=== PATIENT | male | born 1980 | race Caucasian/White ===

== ENCOUNTER 2024-12-06 13:41 | Emergency (ER) | payer MEDICAID, SELFPAY ==
[2024-12-06 13:42] VITALS: BP 97/83; PULSE 90; RESP 18; TEMP 36.6; O2SAT 97; BMI 24.7
--- NOTE | 2024-12-06 13:59 | EDS_ITS ---
<Statement entered by Alo Patiño DO - 12/06/24 16:10> Patient was seen and examined with nurse suze Kelly All components of the history and physical confirmed and agreed. History of present illness and physical exam: Patient is a 44-year-old male with known significant past medical history who presents to the emergency department the chief complaint of cough, congestion, diffuse bodyaches and feeling overall fatigued. Patient states that several of his household members have been sick with similar symptoms and notes that he brought his younger son here today to be evaluated as well. Patient states that his chest does hurt when he coughs minimally. Patient denies any recent travel history denies any history of blood clots. Review of systems: Agree with above Physical exam: Agree with above MDM Patient is a 44-year-old male with no known significant past medical history who presents to the Emergency Department chief complaint of cough, congestion, not feeling well overall. On the differential diagnose includes but not limited to upper respiratory infection secondary viral etiology, pneumonia, ACS. Once workup is obtained reviewed he will be reevaluated. Patient's chest x-ray reviewed by myself and by radiology showed no acute cardiopulmonary processes. Patient did test positive for influenza A. Patient was encouraged to rotate Tylenol and ibuprofen [id number] as well as use the Zofran as prescribed for nausea. He was encouraged to ensure adequate hydration and return with worsening symptoms or any concerns otherwise he is to follow-up with his primary care physician outpatient setting. He is agreeable this plan all question concerns answered he is discharged home in stable condition. Final impression: Influenza A Disposition: Patient will be discharged home in stable condition Supervising attending attestation: Alo Patiño D.O. [facility] History of Present Illness Chief Complaint: Cold Sx Narrative Narrative: Patient is a 44-year-old male with no significant ankle history, patient presents to the emergency department with complaints of cough, congestion, body aches, feeling fatigued. Patient states that he has similar symptoms but his entire family has. He is here today with his younger son. Patient denies any nausea or vomiting. Patient states when he coughs his chest hurts. PFSH PFSH Allergy/AdvReac Type Severity Reaction Status Date / Time No Known Allergies Allergy Verified 12/06/24 13:42 Social History Smoking Status: Never smoker ROS ROS ED ROS Narrative Constitutional: Negative for fever, weight loss, weakness. Positive for chills, fatigue Eyes: Negative for vision loss, vision change, double vision ENT: Negative for any sore throat, ear pain, congestion Cardiovascular: Negative for any chest pain, tightness, palpitations Respiratory: Negative for any sputum production, hemoptysis, dyspnea, dyspnea on exertion, orthopnea. Positive for cough, chest wall pain Gastrointestinal: Negative for any abdominal pain, nausea, vomiting, diarrhea, constipation, blood in stool, blood in vomit : Negative for any urinary frequency, dysuria, retention, blood in urine Muscle skeletal: Negative for any neck pain, back pain Neurological: Negative for any headache, syncope, dizziness Skin: Negative for any rashes, itching, abrasions, lacerations Psychiatric: Negative for any depression, anxiety, stress, suicidal ideation, homicidal ideation Hematologic: Negative for any excessive bruising, easy bleeding EXAM Physical Exam Narrative Exam Narrative: Vital signs reviewed. HEET: Head normocephalic atraumatic, TMs clear bilaterally. Posterior pharynx is clear, moist mucous membranes. Nares clear bilaterally. Neck: Supple with no lymphadenopathy or tenderness. No signs of meningismus. Cardiac: Regular rate and rhythm no murmurs gallops or rubs, equal peripheral pulses bilaterally. Respiratory: Lungs clear to auscultation bilaterally. No chest tenderness. Abdomen: Soft, nontender, nondistended. No abdominal bruit or pulsatile masses. No hepatosplenomegaly Extremities: No peripheral edema, no signs of gross trauma or deformity. Active full range of motion of all extremities. Neuro: Cranial nerves II through XII intact, no focal neurological deficits. Skin: Clean dry and intact with no rash, purpura, petechiae, vesicles or pustules. Backs/flank: No CVA tenderness, no midline spinal tenderness, no deformity. Psych: Normal mood and affect. No SI, HI or acute psychosis. Const Vital Signs: 12/06/24 13:42 Temperature 98 F Temperature Source Oral Pulse Rate 90 Respiratory Rate 18 Blood Pressure 97/83 H Blood Pressure Mean 87 Pulse Ox 97 Oxygen Delivery Method Room Air [facility] EKG Normal sinus rhythm: Attestation: I personally reviewed and interpreted this EKG as follows: Interpretation: Sinus Rhythm Comments: Normal sinus rhythm, rate of 80 bpm, ME interval 156 ms, QRS duration 88 ms, no acute ST elevation, no acute infarct noted. Treatment and Re-Evaluation :: Differential diagnosis includes however is not limited to: Community-acquired pneumonia, COVID-19, influenza, RSV, other respiratory virus Patient appears generally well, vital signs are stable, patient is nontoxic- appearing. Presenting to the [facility] apartment for cough, generalized fatigue for the last 4 to 5 days. Patient received a two-view chest x-ray, as well as COVID-19 influenza RSV. All radiologic examinations were read, reviewed by the emergency department attending. From these reads, a plan of care will be put in place. Chest x-ray showed no acute process. Patient's viral swab was positive for influenza. This does explain all the patient's symptoms. Patient will be discharged home. She will use ibuprofen and Tylenol. Stable for discharge. Discharge Plan Triage Chief Complaint: Cold Sx ED Midlevel Provider: Robin Perez ED Provider: Alo Patiño Dx/Rx/DC Orders Clinical Impression: Influenza A Instructions: ED Influenza (Adult) Primary Care Provider: Devin Bruce Referrals: Devin Bruce, PA-C [Primary Care Provider] - Activity Restrictions/Additional Instructions: You have influenza A. Take ibuprofen and Tylenol. Print Language: Yi Disposition Disposition: Home, Self Care
--- NOTE | 2024-12-06 14:15 | RAD_ITS ---
PROCEDURE: CHEST PA AND LATERAL REASON FOR EXAM: Cough TECHNIQUE: Single frontal image including the chest and abdomen. COMPARISON: None. FINDINGS: The cardiothymic contour is normal. The lungs are clear. Bowel gas pattern is normal. No evidence of bowel obstruction or free air. The bones are unremarkable. No radiopaque foreign body is identified. RAD/Chest PA and Lateral IMPRESSION: UNREMARKABLE SINGLE VIEW OF THE CHEST AND ABDOMEN. [facility]
--- NOTE | 2024-12-06 14:51 | EKG12_ITS ---
Test Reason : GENERAL Blood Pressure : */* mmHG Vent. Rate : 80 BPM Atrial Rate : 80 BPM P-R Int : 156 ms QRS Dur : 88 ms QT Int : 368 ms P-R-T Axes : 63 52 33 degrees QTcB Int : 424 ms Normal sinus rhythm Normal ECG Confirmed by SHANIA CORREA, MADDISON ([id number]), material expeditor LORRAINE DACOSTA ([id number]) on 12/08/2024 8:18:22 AM Referred By: Confirmed By: MADDISON JAUREGUI MD
== END 2024-12-06 15:44 | disposition home or self-care (01) ==
PROVIDERS: Emergency Provider Emergency Medicine; PCP Physician Assistant; Visit Provider Emergency Medicine
DX: J10.1 Influenza due to other identified influenza virus with other respiratory manifestations (principal)
CPT/HCPCS: 71046; 87631; 93005; 99282

== ENCOUNTER 2025-02-13 19:49 | Emergency (ER) | payer MEDICAID, SELFPAY ==
[2025-02-13 19:49] VITALS: BP 135/113; PULSE 76; RESP 16; TEMP 36.6; O2SAT 100; BMI 25.1
--- NOTE | 2025-02-13 20:00 | CT_ITS ---
PROCEDURE: ABDOMEN/PELVIS WITH CONTRAST 02/13/2025 REASON FOR EXAM: ABDOMINAL PAIN TECHNIQUE: Abdomen and pelvis CT with intravenous contrast. Coronal and Sagittal reconstruction series were provided. PATIENT PREPARATION: Per protocol ORAL CONTRAST: Administered. CONTRAST: Isovue-370 VOLUME: 100 mL One or more dose reduction techniques were used (e.g., Automated exposure control, adjustment of the mA and/or kV according to patient size, use of iterative reconstruction technique. RADIATION DOSE SUMMARY: CTDlvol: 32 mGy DLP: 900 mGycm COMPARISON: None. FINDINGS: Lung bases: The heart is normal in size. The bibasilar lungs are clear. Liver: The liver is normal in size without focal hepatic mass. The major portal veins are patent. No biliary ductal dilation. Gallbladder: Tiny radiopaque stone within the gallbladder. Spleen: Normal-size. Pancreas: Unremarkable. Adrenals: No adrenal mass. Kidneys: No hydronephrosis or nephrolithiasis. Bladder: Distended and unremarkable. Reproductive Organs: Unremarkable. Bowel: Oral contrast material opacifies the stomach, small and large bowel loops. The bowel loops are normal in caliber. No ascites or pneumoperitoneum. Normal appendix. Lymph nodes: No suspicious lymph node enlargement. Vasculature: The abdominal aorta and IVC are normal. Bones: No aggressive osseous lesions. CT/Abdomen/Pelvis WITH Contrast IMPRESSION: 1. No acute abdominopelvic finding. 2. Cholelithiasis without evidence of acute cholecystitis. Reading Location: [facility]
--- NOTE | 2025-02-13 20:02 | EDS_ITS ---
HPI HPI - GI History of Present Illness Chief Complaint: Abd Pain Detail of Chief Complaint: Abdominal pain Informant: patient Narrative Narrative: Patient presents to the emergency department with complaint of abdominal pain that started initially about a week ago. Described that is more on right and left sides of the abdomen and then over the following several days it seemed to get better but always had a pressure disc pain will get worse the day. Continues to complain of discomfort in his abdomen. He has had no fever. No family history of inflammatory bowel disease. He has not had any prior abdominal surgeries. He denies urinary symptoms. Patient been having normal bowel movements. PFSH PFSH Medical History no medical history Home Medications ?Medication ?Instructions ?Recorded ?Last Taken ?Type ondansetron 4 mg disintegrating 4 mg PO Q8H PRN PRN Na usea #10 tabs 12/06/24 Unknown Rx tablet lansoprazole 15 mg capsule,delayed 15 mg PO DAILY #14 caps 02/13/25 Unknown Rx release (Prevacid 24Hr) Allergy/AdvReac Type Severity Reaction Status Date / Time No Known Allergies Allergy Verified 02/13/25 19:51 Social History Smoking Status: Never smoker ROS ROS ED Review of Systems ROS Unobtainable: other Constitutional Constitutional ED: Reports lethargy; Denies chills, fever(s), sweats or weight loss Eyes Eyes: Denies blurry vision, change in vision or diplopia ENT ENT ED: Denies rhinorrhea or sore throat Cardiovascular Cardiovascular: Denies chest pain, orthopnea or racing heartbeat Respiratory/Chest Respiratory/Chest: Denies cough, dyspnea, dyspnea on exertion, orthopnea or sputum Gastrointestinal Gastrointestinal: Reports abdominal pain; Denies diarrhea, nausea or vomiting Genitourinary Genitourinary ED: Denies dysuria, hematuria or urinary frequency Musculoskeletal Musculoskeletal: Denies arthralgias, back pain, myalgias or neck pain Integumentary Denies abscess, Abrasions or rash Neurologic Neurologic: Denies headache(s) or weakness Psychiatric Psychiatric: Denies anxiety, depression or suicidal thoughts Endocrine Endocrinology: Denies polydipsia, polyphagia or polyuria Hematologic/Lymphatic Hematologic/Lymphatic: Denies easy bleeding, easy bruising or lymphadenopathy Allergic/Immunologic Allergic/Immunologic ED: Denies mouth swelling, tongue swelling or urticaria EXAM Physical Exam Const Vital Signs: 02/13/25 19:49 Temperature 97.8 F Temperature Source Temporal Pulse Rate 76 Respiratory Rate 16 Blood Pressure 135/113 H Blood Pressure Mean 120 Pulse Ox 100 Oxygen Delivery Method Room Air Positive well nourished and well developed General Appearance ED: well developed and NAD HEENT Reports TM's clear and moist mucous membranes normocephalic and atraumatic; Negative for trauma or tenderness Tympanic Membrane ED: Yes TM's clear Eyes PERRL and EOMs intact bilaterally General Eye ED: Negative for pale conjunctiva or scleral icterus Neck no lymphadenopathy, supple and no JVD General: Negative for tenderness Chest Wall inspection of chest normal and palpation of chest normal Chest: Negative for tenderness Resp normal respiratory effort and clear to auscultation bilaterally Effort and Inspection: Negative for respiratory distress or pain with movement Auscultation: Negative for rhonchi, wheezes or diminished lung sounds Cardio regular rate, regular rhythm, S1 normal heart sound, S2 normal heart sound and no murmurs Peripheral Pulses: pulses 2+ throughout GI normal to inspection, nondistended, normoactive bowel sounds, soft to palpation, non-distended and no masses GI Narrative: Tenderness palpation with some mild signs. No mass palpated. Back/Spine no CVA tenderness and no thoracic nor lumbar tenderness Extremity normal to inspection General Extremety ED: Negative for edema General Extremity: Negative for edema Neuro oriented x3, CN's II-XII intact bilaterally, no sensory deficits noted and gait normal Sensorium / Orientation: awake, alert, oriented to person, oriented to place and oriented to time Motor Exam: strength 5/5 throughout and strength abnormal Psych mental status grossly normal Skin no rashes or lesions noted and no wounds MDM MDM MDM Narrative Medical decision making narrative: Patient presents with abdominal pain that he said for about a week. Seems to be made worse by eating at times. Does not find any specific foods that seem to make it worse. He has had no fever and no vomiting. Clinically looks well. On exam he is tender mostly to the right lower quadrant. In the differential would be appendicitis versus kidney stone versus UTI or other acute process. Less likely gallbladder disease. Also in the differential would be gastritis or stomach ulcer. IV line established. CBC with differential obtained showed a normal white count of 8.1 with hemoglobin 16.3 and platelet count of 363. Chemistries were normal. LFTs were normal. Lipase normal at 42. Urinalysis normal. CT scan of the abdomen pelvis with IV and p.o. contrast showed cholelithiasis without evidence of cholecystitis. No other acute process noted. This point patient will be started on Prevacid. Will refer to GI for follow- up. I do not think he is having acute cholecystitis. Recommended he avoid spicy and greasy foods. Advised to return if worsening pain, fever, vomiting, or condition worsen anyway Lab Data Attestation: I reviewed the patient's lab results. Labs: Laboratory Results - last 24 hr 02/13/25 02/13/25 20:15 20:20 WBC 8.1 RBC 5.45 Hgb 16.3 Hct 47.6 MCV 87.3 MCH 29.9 MCHC 34.2 RDW Std Deviation 38.7 RDW Coeff of Dena 12.2 Plt Count 363 MPV 9.9 Immature Gran % (Auto) 0.400 Neut % (Auto) 40.3 L Lymph % (Auto) 45.0 H [place] % (Auto) 10.2 H Eos % (Auto) 3.1 Baso % (Auto) 1.0 Absolute Neuts (auto) 3.3 Absolute Lymphs (auto) 3.66 Nucleated RBC % 0 Sodium 138 Potassium 4.1 Chloride 101 Carbon Dioxide 26.8 Anion Gap 10 BUN 10 Creatinine 0.85 Estim Creat Clear Calc 124.91 Est GFR (MDRD) Non-Af 108 BUN/Creatinine Ratio 11.7 Glucose 88 Lactic Acid < 1.0 Calcium 9.6 Total Bilirubin 0.47 AST 31 ALT 26 Alkaline Phosphatase 98 Total Protein 8.3 Albumin 4.7 Globulin 3.6 Albumin/Globulin Ratio 1.3 Lipase 42 Urine Color Straw Urine Clarity Clear Urine pH 7.0 Ur Specific [place] 1.005 Urine Protein Negative Urine Glucose (UA) Normal Urine Ketones Negative Urine Occult Blood Negative Urine Nitrite Negative Urine Bilirubin Negative Urine Urobilinogen Normal Ur Leukocyte Esterase Negative Urine RBC 0 SEEN Urine WBC 0 SEEN Ur Squamous Epith Cells 0 SEEN Urine Bacteria 0 SEEN Urine Mucus 0 SEEN Radiography Diagnostic Testing: Clinical Impression(s) from Imaging Studies Abdomen/Pelvis CT 02/13/25 20:00 IMPRESSION: 1. No acute abdominopelvic finding. 2. Cholelithiasis without evidence of acute cholecystitis. Reading Location: [facility] Discharge Plan Triage Chief Complaint: Abd Pain ED Provider: Daniel Luis Dx/Rx/DC Orders Clinical Impression: Abdominal pain Instructions: ED Abdominal Pain Unkn Cause Male... Prescriptions: New lansoprazole [Prevacid 24Hr] 15 mg capsule,delayed release(DR/EC) 15 mg PO DAILY Qty: 14 0RF No Action ondansetron 4 mg tablet,disintegrating 4 mg PO Q8H PRN PRN (Reason: Nausea) Qty: 10 0RF Primary Care Provider: Devin Bruce Referrals: Pipo Hung DO [Med Staff - Active Staff] - 3-5 Days Devin Bruce, PA-C [Primary Care Provider] - Print Language: German Disposition Disposition: Home, Self Care
[2025-02-13] MEDS: 0.9% Normal Saline (1000mL) 1,000 ML 125 ML IV (20:16)
[2025-02-13 20:24] LABS: Bacteria 0 SEEN /hpf (None Seen); Mucous, Urine 0 SEEN /hpf (<or=2+); Red Blood Cells-Urine 0 SEEN /hpf (0-5); Squamous Epithelial Cells - UA 0 SEEN /hpf (0-5); White Blood Cells 0 SEEN /hpf (0-5)
[2025-02-13 20:26] LABS: Color, Urine Straw (Yellow); Glucose, Dipstick Normal (Normal); Ketone-Dipstick Negative (Negative); Leukocyte Esterase-Dipstick Negative /ul (Negative); Nitrite-Dipstick Negative (Negative); Occult Blood-Urine Negative /ul (Negative); Protein-Dipstick Negative (Negative); Specific Gravity, Urine 1.005 (1.002-1.030); Urine Bilirubin Dipstick Negative (Negative); Urine Clarity Clear (Clear); Urine Urobilinogen Normal (Normal)
[2025-02-13 20:31] LABS: Absolute Lymphocyte Count 3.66 X10^3/uL (0.83-4.51); Absolute Neutrophil Count 3.3 X10^3/uL (2.0-7.7); Basophil# 0.08 X10^3/uL; Eosinophil# 0.25 X10^3/uL; Eosinophils% 3.1 % (0-5); Hematocrit 47.6 % (40-54); Hemoglobin 16.3 g/dL (13.0-16.5); Lymphocyte # 3.66 X10^3/ul (0.83-4.51); Mean Corp Hgb Conc 34.2 g/dL (32-36); Mean Corpuscular Hgb 29.9 pg (27.0-32.0); Mean Corpuscular Volume 87.3 fL (80-94); Mean Platelet Vol. 9.9 fl (6.2-12.0); Monocyte# 0.83 X10^3/uL; Monocyte% 10.2 % (0-10); NRBC Flagged by Analyzer 0 % (0-5); Neutrophil # 3.28 X10^3/uL (2.7-7.7); Neutrophil % 40.3 % (47-70); Platelet Count 363 K/mm3 (150-450); RBC Distribution Width CV 12.2 % (11.6-14.6); RBC Distribution Width SD 38.7 fl (35.1-43.9); Red Blood Count 5.45 M/mm3 (4.6-6.2); White Blood Count 8.1 K/mm3 (4.4-11.0)
[2025-02-13 21:11] LABS: ALB/GLOB Ratio 1.3 RATIO (0.9-2.4); AST(SGOT) 31 U/L (<=37); Alanine Aminotransfer ALT/SGPT 26 U/L (<=46); Albumin, Serum 4.7 g/dL (3.5-5.0); Alkaline Phosphatase 98 U/L (40-129); Anion Gap 10 (5-15); BUN 10 mg/dL (4-19); BUN/Creat Ratio 11.7 RATIO (10-20); Calcium,Total 9.6 mg/dL (7.6-11.0); Carbon Dioxide 26.8 mmol/L (21.0-32.0); Chloride 101 mmol/L (98-108); Creatinine, Serum 0.85 mg/dL (0.70-1.20); EST Glomerular Filtration Rate 108 (>60); Estimated Creatinine Clearance 124.91 ml/min (50-250); Globulin 3.6 g/dL (2.2-4.2); Glucose 88 mg/dL (70-99); Lipase 42 U/L (13-75); Potassium 4.1 mmol/L (3.3-5.1); Protein, Total 8.3 g/dL (5.9-8.4); Sodium Level 138 mmol/L (133-145); Total Bilirubin 0.47 mg/dL (0.00-1.30)
[2025-02-13 21:24] LABS: Lactic Acid < 1.0 mmol/L (0.0-2.0)
[2025-02-13 23:05] VITALS: BP 132/90; PULSE 77; RESP 18; TEMP 36.6; O2SAT 99
== END 2025-02-13 23:06 | disposition home or self-care (01) ==
PROVIDERS: Emergency Provider Emergency Medicine; PCP Physician Assistant; Visit Provider Emergency Medicine
DX: R10.31 Right lower quadrant pain (principal)
CPT/HCPCS: 74177; 80053; 81001; 83605; 83690; 85025; 96360; 96361; 99282; Q9967

== ENCOUNTER 2025-05-17 14:41 | Emergency (ER) | payer MEDICAID, SELFPAY ==
[2025-05-17 14:42] VITALS: BP 138/93; PULSE 73; RESP 16; TEMP 36.8; O2SAT 96; BMI 25.5
--- NOTE | 2025-05-17 16:31 | EDS_ITS ---
HPI <KARIN Glasgow - Last Filed: 05/17/25 17:02> HPI - URI History of Present Illness Chief Complaint: Ear Problem Narrative Narrative: Patient presenting with pain in his left ear he has had over the past 3-4 days. He reports that he went to a water park and got some water in his ear and thought he was may be developing swimmer's ear and began to use some [id number] swimmer's ear drops with no relief of his symptoms. He also reports that he has a cracked mandibular left second molar that started causing him pain about 2 days ago. He is unsure if it is related to his ear or not. He is eating and drinking without difficulty. He denies associated fevers, chills, nausea, vomiting, and dizziness. He does report muffled hearing on the left. ROS <KARIN Glasgow - Last Filed: 05/17/25 17:02> ROS ED Constitutional Constitutional ED: Denies chills or fever(s) ENT ENT ED: Reports ear pain left Cardiovascular Cardiovascular: Denies chest pain Respiratory/Chest Respiratory/Chest: Denies cough or dyspnea Gastrointestinal Gastrointestinal: Denies abdominal pain, nausea or vomiting Musculoskeletal Musculoskeletal: Denies arthralgias or myalgias Integumentary Denies rash Neurologic Neurologic: Denies weakness PFSH <KARIN Glasgow - Last Filed: 05/17/25 17:02> PFSH Home Medications ?Medication ?Instructions ?Recorded ?Last Taken ?Type ondansetron 4 mg disintegrating 4 mg PO Q8H PRN PRN Na usea #10 tabs 12/06/24 Unknown Rx tablet lansoprazole 15 mg capsule,delayed 15 mg PO DAILY #14 caps 02/13/25 Unknown Rx release (Prevacid 24Hr) clindamycin HCl 300 mg capsule 300 mg PO TID 10 days # 30 caps 05/17/25 Unknown Rx (Cleocin HCl) ibuprofen 600 mg tablet 600 mg PO Q6H PRN PRN pain # 20 05/17/25 Unknown Rx TABLETS Allergy/AdvReac Type Severity Reaction Status Date / Time No Known Allergies Allergy Verified 05/17/25 14:41 Social History Smoking Status: Never smoker EXAM <KARIN Glasgow - Last Filed: 05/17/25 17:02> Physical Exam Const Vital Signs: 05/17/25 14:42 Temperature 98.2 F Temperature Source Oral Pulse Rate 73 Respiratory Rate 16 Blood Pressure 138/93 H Blood Pressure Mean 108 Pulse Ox 96 Oxygen Delivery Method Room Air Positive well nourished, well developed and no apparent distress General Appearance ED: well developed HEENT Reports normocephalic and head/scalp atraumatic HEENT Narrative: Right TM clear, left TM has a cerumen impaction, unable to visualize left TM, dental carry to the left mandibular second molar, no dental abscess, no trismus, no drooling, no sublingual or submental swelling, no facial cellulitis Mouth ED: Yes moist mucous membranes normal Eyes PERRL and EOMs intact bilaterally Neck full ROM, no lymphadenopathy and supple Chest Wall inspection of chest normal Resp normal respiratory effort and clear to auscultation bilaterally Cardio regular rate and regular rhythm GI soft to palpation, non-tender, non-distended and no masses Back/Spine normal ROM and normal to inspection Extremity normal to inspection and full ROM Neuro oriented x3, CN's II-XII intact bilaterally, moves all extremities, no focal motor deficits and no sensory deficits noted Sensorium / Orientation: awake and alert Psych mental status grossly normal and thought process normal Skin no rashes or lesions noted and no wounds <Dr. Daniel Lusi DO - Last Filed: 05/17/25 16:38> Physical Exam Const Vital Signs: 05/17/25 14:42 Temperature 98.2 F Temperature Source Oral Pulse Rate 73 Respiratory Rate 16 Blood Pressure 138/93 H Blood Pressure Mean 108 Pulse Ox 96 Oxygen Delivery Method Room Air [facility] <KARIN Glasgow - Last Filed: 05/17/25 17:02> [facility] Narrative Medical decision making narrative: Patient presenting today due to muffled hearing and pain to the left ear he has had over the past few days after going to a water park. On exam he has a left cerumen impaction that was able to be removed with a curette. He reported significant improvement of his symptoms. He does have a broken mandibular left second molar that has been causing him pain. He does have a an upcoming dentist appointment. I will place him on a course of antibiotics for this. He does not have any signs of Ludewig's angina on exam. No facial cellulitis or dental abscess. Recommended he follow-up with his dentist for this, return instructions discussed and patient discharged home in stable condition. I will place him on a course of clindamycin with first dose here. I have personally performed a face to face assessment of the patient and have reviewed the RICHAR Note. I performed a substantive portion of the visit including all aspects of the following. My hayward findings include: History is [patient presents with ear discomfort times about 3 to 4 days after going to a water park. Patient also states he has got some discomfort that comes down into his left jaw and underneath his jaw. He states that he cracked a tooth several weeks ago and is scheduled to see a dentist but not for another month. Patient denies fever chills or sweats.] Exam is [SHANICE-PERSUSANNA, EOMI. Cranial nerves II through XII grossly intact. TMs clear. Mucous membranes moist. No adenopathy. Left ear-patient has large cerumen impaction. Ear canal appears normal. Initially unable to visualize the tympanic membrane. Evaluation of his teeth does reveal a broken and carried left lower second molar. No gingival erythema or abscess noted. No facial cellulitis. Cardiovascular-regular rate and rhythm without murmur or ectopy Lungs-clear to auscultation, chest wall stable without crepitus or subcu e mphysema Abdomen-normoactive bowel sounds, soft, nontender, no rebound or rigidity, no peritoneal signs. Extremities-intact ?4, normal range of motion, normal pulses, atraumatic] Medical Decison Making [I was able to use an ear curette to remove a large bolus of earwax from the left ear. I was able to visualize the tympanic membrane which appeared normal. There was no evidence of infection in the ear canal. Patient immediately felt improved and stated that he can now hear. Patient will be treated with clindamycin for his broken tooth and advised to keep his appoint with his dentist.] Other additions or changes: [None] <Dr. Daniel Luis, DO - Last Filed: 05/17/25 16:38> [facility] Narrative Medical decision making narrative: I have personally performed a face to face assessment of the patient and have reviewed the RICHAR Note. I performed a substantive portion of the visit including all aspects of the following. My hayward findings include: History is [patient presents with ear discomfort times about 3 to 4 days after going to a water park. Patient also states he has got some discomfort that comes down into his left jaw and underneath his jaw. He states that he cracked a tooth several weeks ago and is scheduled to see a dentist but not for another month. Patient denies fever chills or sweats.] Exam is [HEENT-PERRLA, EOMI. Cranial nerves II through XII grossly intact. TMs clear. Mucous membranes moist. No adenopathy. Left ear-patient has large cerumen impaction. Ear canal appears normal. Initially unable to visualize the tympanic membrane. Evaluation of his teeth does reveal a broken and carried left lower second molar. No gingival erythema or abscess noted. No facial cellulitis. Cardiovascular-regular rate and rhythm without murmur or ectopy Lungs-clear to auscultation, chest wall stable without crepitus or subcu emphysema Abdomen-normoactive bowel sounds, soft, nontender, no rebound or rigidity, no peritoneal signs. Extremities-intact ?4, normal range of motion, normal pulses, atraumatic] Medical Decison Making [I was able to use an ear curette to remove a large bolus of earwax from the left ear. I was able to visualize the tympanic membrane which appeared normal. There was no evidence of infection in the ear canal. Patient immediately felt improved and stated that he can now hear. Patient will be treated with clindamycin for his broken tooth and advised to keep his appoint with his dentist.] Other additions or changes: [None] Discharge Plan Triage Chief Complaint: Ear Problem ED Midlevel Provider: Alida Gonzalez ED Provider: Daniel Luis Dx/Rx/DC Orders Clinical Impression: Impacted cerumen, left ear, Pain, dental, Dental caries Instructions: ED Dental Pain, ED Earwax Removal Prescriptions: New ibuprofen 600 mg tablet 600 mg PO Q6H PRN PRN (Reason: pain) Qty: 20 0RF clindamycin HCl [Cleocin HCl] 300 mg capsule 300 mg PO TID 10 Days Qty: 30 0RF No Action ondansetron 4 mg tablet,disintegrating 4 mg PO Q8H PRN PRN (Reason: Nausea) Qty: 10 0RF lansoprazole [Prevacid 24Hr] 15 mg capsule,delayed release(DR/EC) 15 mg PO DAILY Qty: 14 0RF Primary Care Provider: Devin Bruce Referrals: Devin Bruce, PA-C [Primary Care Provider] - 5-7 Days Activity Restrictions/Additional Instructions: Follow-up with your dentist and return for any worsening symptoms. Print Language: Hebrew Disposition Disposition: Home, Self Care
[2025-05-17 17:00] VITALS: BP 138/93; PULSE 73; RESP 16; TEMP 36.8; O2SAT 96
--- OUTSIDE RECORDS SUMMARY | 2025-05-17 17:00 | XMS RPT_ITS | CCD ---
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 Alo Patiño DO Attending Provider Dr. Alo Patiño DO Emergency Provider Dr. Daniel Luis DO Emergency Provider [phone] Devin Villa Primary Care Unavailable Alo Patiño Attending Unavailable Daniel Luis Attending Unavailable Devin Villa Primary Care Unavailable Medications Current Medications Medication Drug Class(es) Dates Sig (Normalized) Sig (Original) lansoprazole 15 mg delayed release oral capsule (1 source) Proton Pump Inhibitor Start: 02-13-2025 take 1 capsule by mouth once daily Lansoprazole (Prevacid 24hr) 15 mg capsule,delayed release(DR/EC) Active 15 mg PO DAILY February 13, 2025 12:00am ondansetron 4 mg disintegrating oral tablet (1 source) Serotonin-3 Receptor Antagonist Start: 12-06-2024 take 1 tablet by mouth every eight hours as needed for nausea Ondansetron 4 mg tablet,disintegrat ing Active 4 mg PO EVERY 8 HOURS NEEDED as needed for Nausea December 06, 2024 1:00am Problems Problem Classification Problem Date Documented Da te Episodic/Chronic Abdominal pain (2 sources) Abdominal pain; Translations: [Unspecified abdominal pain] Onset: 02-18-2025 02-13-2025 Episodic Influenza (1 source) Influenza due to Influenza A virus; Translations: [Influenza due to other identified influenza virus with other respiratory manifestations] 12-14-2024 Episodic Unclassified (1 source) Cough, unspecified; Translations: [Cough, unspecified] Onset: 12-25-2024 Results Test Name Value Interpretation Reference Range Facility Abdomen/Pelvis WITH Contrast on 02-13-2025 Abdomen/Pelvis WITH Contrast [facility] Imaging Services [address] [place] [address] Abdomen/Pelvis WITH Contrast MR#: [id number] Acct: [id number] Name: MARBIN BOWSER Rep #: [id number] : 1980 M 45 From: Cathy Ann nd, MD PCP: Devin Bruce PA-C Status: REG ER Study: Abdomen/Pelvis WITH Contrast Date of Exam: 09/29 Exam# [id number] Ordering Dr: Daniel Luis DO PROCEDURE: ABDOMEN/PELVIS WITH CONTRAST 02/13/2025 REASON FOR EXAM: ABDOMINAL PAIN TECHNIQUE: Abdomen and pelvis CT with intravenous contrast. Coronal and Sagittal reconstruction series were provided. PATIENT PREPARATION: Per protocol ORAL CONTRAST: Administered. CONTRAST: Isovue-370 VOLUME: 100 mL One or more dose reduction techniques were used (e.g., Automated exposure control, adjustment of the mA and/or kV according to patient size, use of iterative reconstruction technique. RADIATION DOSE SUMMARY: CTDlvol: 32 mGy DLP: 900 mGycm COMPARISON: None. FINDINGS: Lung bases: The heart is normal in size. The bibasilar lungs are clear. Liver: The liver is normal in size without focal hepatic mass. The major portal veins are patent. No biliary ductal dilation. Gallbladder: Tiny radiopaque stone within the gallbladder. Spleen: Normal-size. Pancreas: Unremarkable. Adrenals: No adrenal mass. Kidneys: No hydronephrosis or nephrolithiasis. Bladder: Distended and unremarkable. Reproductive Organs: Unremarkable. Bowel: Oral contrast material opacifies the stomach, small and large bowel loops. The bowel loops are normal in caliber. No ascites or pneumoperitoneum. Normal appendix. Lymph nodes: No suspicious lymph node enlargement. Vasculature: The abdominal aorta and IVC are normal. Bones: No aggressive osseous lesions. CT/Abdomen/Pelvis WITH Contrast IMPRESSION: 1. No acute abdominopelvic finding. 2. Cholelithiasis without evidence of acute cholecystitis. Reading Location: [facility] CC: NADIR Bruce; Dr. Daniel Luis DO Associate Director Of Development: Signed [facility] Absolute neutrophil countOrd ered By: Daniel Luis on 02-13-2025 Neutrophils (Bld) [#/Vol] 3.3 10*3/uL 2.0-7.7 [facility] Anion gap in Serum or Plasma Ordered By: Daniel Luis on 02-13-2025 Anion gap [Moles/Vol] 10 mmol/L 5-15 [facility] BUN/creatinine ratioOrdered By: Daniel Luis on 02-13-2025 Urea nitrogen/Creatinine [Mass ratio] 11.7 mg/mg 10-20 [facility] Basophil percentageOrdered B y: Daniel Luis on 02-13-2025 Basophils/100 WBC (Bld) 1.0 % 0-1 [facility] Bilirubin Test strip Ql (U)O rdered By: Daniel Luis on 02-13-2025 Bilirubin Ql (U) Negative Negative [facility] Bilirubin, totalOrdered By: Daniel Luis on 02-13-2025 Bilirubin [Mass/Vol] 0.47 mg/dL 0.00-1.30 [facility] CBC W/Diff, Automatedon 02-03 Absolute Lymph 3.66 X10 3/uL Normal 0.83-4.51 [facility] Comment on above: Performed By: #### L 100.0100, L503.6005, L500.4050, L501.2450 #### [facility] [address] [place], [address] Absolute Neut 3.3 X10 3/uL Normal 2.0-7.7 [facility] Comment on above: Performed By: #### L 100.0100, L503.6005, L500.4050, L501.2450 #### [facility] [address] [place], [address] Basophils/100 WBC (Bld) 1.0 % Normal 0-1 [facility] Comment on above: Performed By: #### L 100.0100, L503.6005, L500.4050, L501.2450 #### [facility] [address] [place], [address] Eosinophils/100 WBC (Bld) 3.1 % Normal 0-5 [facility] Comment on above: Performed By: #### L 100.0100, L503.6005, L500.4050, L501.2450 #### [facility] [address] [place], [address] Erythrocyte distribution width (RBC) [Ratio] 12.2 % Normal 11.6-14.6 [facility] Comment on above: Performed By: #### L 100.0100, L503.6005, L500.4050, L501.2450 #### [facility] [address] [place], [address] Hematocrit (Bld) [Volume fraction] 47.6 % Normal 40-54 [facility] Comment on above: Performed By: #### L 100.0100, L503.6005, L500.4050, L501.2450 #### [facility] [address] [place], [address] Hemoglobin (Bld) [Mass/Vol] 16.3 g/dL Normal 13.0-16.5 [facility] Comment on above: Performed By: #### L 100.0100, L503.6005, L500.4050, L501.2450 #### [facility] [address] [place], [address] IG% 0.400 Normal 0.0-0.9 [facility] Comment on above: Result Comment: IG% - Immature Granulocytes (promyelocytes, myelocytes and metamyelocytes) > 1% indicates that a LEFT SHIFT is Present. Performed By: #### L 100.0100, L503.6005, L500.4050, L501.2450 #### [facility] [address] [place], [address] Lymphocytes/100 WBC (Bld) 45.0 % High 19-41 [facility] Comment on above: Performed By: #### L 100.0100, L503.6005, L500.4050, L501.2450 #### [facility] [address] [place], [address] MCH (RBC) [Entitic mass] 29.9 pg Normal 27.0-32.0 [facility] Comment on above: Performed By: #### L 100.0100, L503.6005, L500.4050, L501.2450 #### [facility] [address] [place], [address] MCHC (RBC) [Mass/Vol] 34.2 g/dL Normal 32-36 [facility] Comment on above: Performed By: #### L 100.0100, L503.6005, L500.4050, L501.2450 #### [facility] [address] [place], [address] MCV (RBC) [Entitic vol] 87.3 fL Normal 80-94 [facility] Comment on above: Performed By: #### L 100.0100, L503.6005, L500.4050, L501.2450 #### [facility] [address] [place], [address] Monocytes/100 WBC (Bld) 10.2 % High 0-10 [facility] Comment on above: Performed By: #### L 100.0100, L503.6005, L500.4050, L501.2450 #### [facility] [address] [place], [address] Neutrophils/100 WBC (Bld) 40.3 % Low 47-70 [facility] Comment on above: Performed By: #### L 100.0100, L503.6005, L500.4050, L501.2450 #### [facility] [address] [place], [address] Nucleated RBC (Bld) [#/Vol] 0 10*3/uL Normal 0-5 [facility] Comment on above: Performed By: #### L 100.0100, L503.6005, L500.4050, L501.2450 #### [facility] [address] [place], [address] Platelet mean volume (Bld) [Entitic vol] 9.9 fL Normal 6.2-12.0 [facility] Comment on above: Performed By: #### L 100.0100, L503.6005, L500.4050, L501.2450 #### [facility] [address] [place], [address] Platelets (Bld) [#/Vol] 363 10*3/uL Normal 150-450 [facility] Comment on above: Performed By: #### L 100.0100, L503.6005, L500.4050, L501.2450 #### [facility] [address] [place], [address] RBC (Bld) [#/Vol] 5.45 10*6/uL Normal 4.6-6.2 [facility] Comment on above: Performed By: #### L 100.0100, L503.6005, L500.4050, L501.2450 #### [facility] [address] [place], [address] RDW SD 38.7 fl Normal 35.1-43.9 [facility] Comment on above: Performed By: #### L 100.0100, L503.6005, L500.4050, L501.2450 #### [facility] [address] [place], [address] WBC (Bld) [#/Vol] 8.1 10*3/uL Normal 4.4-11.0 [facility] Comment on above: Performed By: #### L 100.0100, L503.6005, L500.4050, L501.2450 #### [facility] [address] [place], [address] Carbon dioxide, total [Moles /volume] in Central venous bloodOrdered By: Daniel Luis on 02-13-2025 CO2 [Moles/Vol] 26.8 mmol/L 21.0-32.0 [facility] Chloride assayOrdered By: Willa Luis on 02-13-2025 Chloride [Moles/Vol] 101 mmol/L 98-108 [facility] Comprehensive Metabolic Prof ilon 02-13-2025 Albumin [Mass/Vol] 4.7 g/dL Normal 3.5-5.0 [facility] Comment on above: Performed By: #### L 100.0100, L503.6005, L500.4050, L501.2450 #### [facility] [address] [place], [address] Albumin/Globulin [Mass ratio] 1.3 {ratio} Normal 0.9-2.4 [facility] Comment on above: Performed By: #### L 100.0100, L503.6005, L500.4050, L501.2450 #### [facility] [address] [place], [address] ALK PHOS 98 U/L Normal 40-129 [facility] Comment on above: Performed By: #### L 100.0100, L503.6005, L500.4050, L501.2450 #### [facility] [address] [place], [address] ALT [Catalytic activity/Vol] 26 U/L Normal <=46 [facility] Comment on above: Performed By: #### L 100.0100, L503.6005, L500.4050, L501.2450 #### [facility] [address] [place], [address] AST [Catalytic activity/Vol] 31 U/L Normal <=37 [facility] Comment on above: Performed By: #### L 100.0100, L503.6005, L500.4050, L501.2450 #### [facility] [address] [place], [address] Bilirubin [Mass/Vol] 0.47 mg/dL Normal 0.00-1.30 [facility] Comment on above: Performed By: #### L 100.0100, L503.6005, L500.4050, L501.2450 #### [facility] [address] [place], [address] BUN/CRE 11.7 RATIO Normal 10-20 [facility] Comment on above: Performed By: #### L 100.0100, L503.6005, L500.4050, L501.2450 #### [facility] [address] [place], [address] Calcium [Mass/Vol] 9.6 mg/dL Normal 7.6-11.0 [facility] Comment on above: Performed By: #### L 100.0100, L503.6005, L500.4050, L501.2450 #### [facility] [address] [place], [address] Chloride [Moles/Vol] 101 mmol/L Normal 98-108 [facility] Comment on above: Performed By: #### L 100.0100, L503.6005, L500.4050, L501.2450 #### [facility] [address] [place], [address] CO2 [Moles/Vol] 26.8 mmol/L Normal 21.0-32.0 [facility] Comment on above: Performed By: #### L 100.0100, L503.6005, L500.4050, L501.2450 #### [facility] [address] [place], [address] Creatinine [Mass/Vol] 0.85 mg/dL Normal 0.70-1.20 [facility] Comment on above: Performed By: #### L 100.0100, L503.6005, L500.4050, L501.2450 #### [facility] [address] [place], [address] ECRCL 124.91 ml/min Normal 50-250 [facility] Comment on above: Performed By: #### L 100.0100, L503.6005, L500.4050, L501.2450 #### [facility] [address] [place], [address] GAP 10 Normal 5-15 [facility] Comment on above: Performed By: #### L 100.0100, L503.6005, L500.4050, L501.2450 #### [facility] [address] [place], [address] GFR/1.73 sq M.predicted among non-blacks MDRD (S/P/Bld) [Vol rate/Area] 108 mL/min/{1.73_m2} Normal >60 [facility] Comment on above: Result Comment: mL/m in/1.73m2 CKD-EPI Creatinine Equation (2020) Performed By: #### L 100.0100, L503.6005, L500.4050, L501.2450 #### [facility] [address] [place], [address] Globulin (S) [Mass/Vol] 3.6 g/dL Normal 2.2-4.2 [facility] Comment on above: Performed By: #### L 100.0100, L503.6005, L500.4050, L501.2450 #### [facility] [address] [place], [address] Glucose [Mass/Vol] 88 mg/dL Normal 70-99 [facility] Comment on above: Performed By: #### L 100.0100, L503.6005, L500.4050, L501.2450 #### [facility] [address] [place], [address] Potassium [Moles/Vol] 4.1 mmol/L Normal 3.3-5.1 [facility] Comment on above: Performed By: #### L 100.0100, L503.6005, L500.4050, L501.2450 #### [facility] [address] [place], [address] Sodium [Moles/Vol] 138 mmol/L Normal 133-145 [facility] Comment on above: Performed By: #### L 100.0100, L503.6005, L500.4050, L501.2450 #### [facility] [address] [place], [address] T PROT 8.3 g/dL Normal 5.9-8.4 [facility] Comment on above: Performed By: #### L 100.0100, L503.6005, L500.4050, L501.2450 #### [facility] [address] [place], [address] Urea nitrogen [Mass/Vol] 10 mg/dL Normal 4-19 [facility] Comment on above: Performed By: #### L 100.0100, L503.6005, L500.4050, L501.2450 #### [facility] [address] [place], [address] Emergency Department Summary on 02-13-2025 Emergency Department Summary [facility] Medical Records Department [address] [place] [address] Emergency Department Summary 02/13/25 MR#: [id number] Acct: [id number] Name: MARBIN BOWSER Rep #: [id number] : 1980 45 From: Daniel Luis DO PCP: Devin Bruce PA-C Status:DEP ER Location: ED HPI HPI - GI History of Present Illness Chief Complaint: Abd Pain Detail of Chief Complaint: Abdominal pain Informant: patient Narrative Narrative: Patient presents to the emergency department with complaint of abdominal pain that started initially about a week ago. Described that is more on right and left sides of the abdomen and then over the following several days it seemed to get better but always had a pressure disc pain will get worse the day. Continues to complain of discomfort in his abdomen. He has had no fever. No family history of inflammatory bowel disease. He has not had any prior abdominal surgeries. He denies urinary symptoms. Patient been having normal bowel movements. PFSH PFSH Medical History no medical history Home Medications ???Medication ???Instructions ???Recorded ???Last Taken ???Type ondansetron 4 mg disintegrating 4 mg PO Q8H PRN PRN Nausea #10 tab s 12/06/24 Unknown Rx tablet lansoprazole 15 mg capsule,delayed 15 mg PO DAILY #14 caps 02/13/25 Unknown Rx release (Prevacid 24Hr) Allergy/AdvReac Type Severity Reaction Status Date / Time No Known Allergies Allergy Verified 02/13/25 19:51 Social History Smoking Status: Never smoker ROS ROS ED Review of Systems ROS Unobtainable: other Constitutional Constitutional ED: Reports lethargy; Denies chills, fever(s), sweats or weight loss Eyes Eyes: Denies blurry vision, change in vision or diplopia ENT ENT ED: Denies rhinorrhea or sore throat Cardiovascular Cardiovascular: Denies chest pain, orthopnea or racing heartbeat Respiratory/Chest Respiratory/Chest: Denies cough, dyspnea, dyspnea on exertion, orthopnea or sputum Gastrointestinal Gastrointestinal: Reports abdominal pain; Denies diarrhea, nausea or vomiting Genitourinary Genitourinary ED: Denies dysuria, hematuria or urinary frequency Musculoskeletal Musculoskeletal: Denies arthralgias, back pain, myalgias or neck pain Integumentary Denies abscess, Abrasions or rash Neurologic Neurologic: Denies headache(s) or weakness Psychiatric Psychiatric: Denies anxiety, depression or suicidal thoughts Endocrine Endocrinology: Denies polydipsia, polyphagia or polyuria Hematologic/Lymphatic Hematologic/Lymphatic: Denies easy bleeding, easy bruising or lymphadenopathy Allergic/Immunologic Allergic/Immunologic ED: Denies mouth swelling, tongue swelling or urticaria EXAM Physical Exam Const Vital Signs: 02/13/25 19:49 Temperature 97.8 F Temperature Source Temporal Pulse Rate 76 Respiratory Rate 16 Blood Pressure 135/113 H Blood Pressure Mean 120 Pulse Ox 100 Oxygen Delivery Method Room Air Positive well nourished and well developed General Appearance ED: well developed and NAD HEENT Reports TM's clear and moist mucous membranes normocephalic and atraumatic; Negative for trauma or tenderness Tympanic Membrane ED: Yes TM's clear Eyes PERRL and EOMs intact bilaterally General Eye ED: Negative for pale conjunctiva or scleral icterus Neck no lymphadenopathy, supple and no JVD General: Negative for tenderness Chest Wall inspection of chest normal and palpation of chest normal Chest: Negative for tenderness Resp normal respiratory effort and clear to auscultation bilaterally Effort and Inspection: Negative for respiratory distress or pain with movement Auscultation: Negative for rhonchi, wheezes or diminished lung sounds Cardio regular rate, regular rhythm, S1 normal heart sound, S2 normal heart sound and no murmurs Peripheral Pulses: pulses 2+ throughout GI normal to inspection, nondistended, normoactive bowel sounds, soft to palpation, non-distended and no masses GI Narrative: Tenderness palpation with some mild signs. No mass palpated. Back/Spine no CVA tenderness and no thoracic nor lumbar tenderness Extremity normal to inspection General Extremety ED: Negative for edema General Extremity: Negative for edema Neuro oriented x3, CN's II-XII intact bilaterally, no sensory deficits noted and gait normal Sensorium / Orientation: awake, alert, oriented to person, oriented to place and oriented to time Motor Exam: strength 5/5 throughout and strength abnormal Psych mental status grossly normal Skin no rashes or lesions noted and no wounds MDM MDM MDM Narrative Medical decision making narrative: Patient presents with abdominal pain that he said for about a week. Seems to be made worse by eating at times. Does not find any specific foods that see (more content not included)... [facility] Eosinophil percentageOrdered By: Daniel Luis on 02-13-2025 Eosinophils/100 WBC (Bld) 3.1 % 0-5 [facility] Epithelial cells.squamous LM Ql (Urine sed)Ordered By: Daniel Luis on 02-13-2025 Epithelial cells.squamous LM.HPF (Urine sed) [#/Area] 0 /[HPF] 0-5 [facility] Erythrocyte distribution wid th (RBC) [Ratio]Ordered By: Daniel Luis on 02-13-2025 Erythrocyte distribution width (RBC) [Entitic vol] 38.7 fL 35.1-43.9 [facility] Erythrocyte distribution wid th ratioOrdered By: Dnaiel Luis on 02-13-2025 Erythrocyte distribution width (RBC) [Ratio] 12.2 % 11.6-14.6 [facility] Estimation of creatinine alphonse aranceOrdered By: Daniel Luis on 02-13-2025 Estimated Creatinine Clearance Calc 124.91 ml/min 50-250 [facility] GFR/1.73 sq M.predicted rj g non-blacks MDRD (S/P/Bld) [Vol rate/Area]Ordered By: Daniel Luis on 02-13-2025 Estimated GFR (MDRD) Non-Af Amer 108 >60 [facility] Comment on above: mL/min/1.73m2 CKD-EP I Creatinine Equation (2020) Glucose Ql (U)Ordered By: Willa Luis on 02-13-2025 Urine Glucose (UA) Normal mg/dl Normal [facility] Hematocrit Auto (Bld) [Volum e fraction]Ordered By: Daniel Luis on 02-13-2025 Hematocrit (Bld) [Volume fraction] 47.6 % 40-54 [facility] Hemoglobin measurementOrdere d By: Daniel Luis on 02-13-2025 Hemoglobin (Bld) [Mass/Vol] 16.3 g/dL 13.0-16.5 [facility] Immature granulocytes/100 WB C Auto (Bld)Ordered By: Daniel Luis on 02-13-2025 Immature granulocytes/100 WBC (Bld) 0.400 % 0.0-0.9 [facility] Comment on above: IG% - Immature Granu locytes (promyelocytes, myelocytes and metamyelocytes) > 1% indicates that a LEFT SHIFT is Present. Ketones Test strip Ql (U)Ord ered By: Daniel Luis on 02-13-2025 Ketones Ql (U) Negative Negative [facility] - Chemistry and C hemistry - challengeOrdered By: Daniel Luis on 02-13-2025 AST [Catalytic activity/Vol] 31 U/L <38 [facility] Lactic Acidon 02-13-2025 Lactate [Moles/Vol] mmol/L Normal 0.0-2.0 [facility] Comment on above: Order Comment: Y Performed By: #### L 100.0100, L503.6005, L500.4050, L501.2450 #### [facility] [address] [place], [place], [address] Lactic acid measurementOrder ed By: Daniel Luis on 02-13-2025 Lactate [Moles/Vol] mmol/L 0.0-2.0 [facility] Lipaseon 02-13-2025 Lipase [Catalytic activity/Vol] 42 U/L Normal 13-75 [facility] Comment on above: Result Comment: Plea se note: LIPASE revised reference range effective 23. New Lipase methodology. Expected to produce lower values than the previous assay method. NEW Reference Range: 13 - 75 U/L Performed By: #### L 100.0100, L503.6005, L500.4050, L501.2450 #### [facility] [address] [place], [address] Lipase measurementOrdered By : Daniel Luis on 02-13-2025 Lipase [Catalytic activity/Vol] 42 U/L 13-75 [facility] Comment on above: Please note:LIPASE r evised reference range effective 23. New Lipase methodology. Expected to produce lower values than the previous assay method. NEW Reference Range: 13 - 75 U/L Lymphocytes Auto (Unsp spec) [#/Vol]Ordered By: Daniel Luis on 02-13-2025 Lymphocytes (Bld) [#/Vol] 3.66 10*3/uL 0.83-4.51 [facility] Lymphocytes/100 WBC Auto (Un sp spec)Ordered By: Daniel Luis on 02-13-2025 Lymphocytes/100 WBC (Bld) 45.0 % High 19-41 [facility] MCV (mean corpuscular volume ) determinationOrdered By: Daniel Luis on 02-13-2025 MCV (RBC) [Entitic vol] 87.3 fL 80-94 [facility] Mean corpuscular hemoglobin (MCH) determinationOrdered By: Daniel Luis on 02-13-2025 MCH (RBC) [Entitic mass] 29.9 pg 27.0-32.0 [facility] Mean corpuscular hemoglobin concentration (MCHC) determinationOrdered By: Daniel Luis on 02-13-2025 MCHC (RBC) [Mass/Vol] 34.2 g/dL 32-36 [facility] Mean platelet volume determi nationOrdered By: Daniel Luis on 02-13-2025 Platelet mean volume (Bld) [Entitic vol] 9.9 fL 6.2-12.0 [facility] Microscopic analysis of urin e for red blood cells (RBC)Ordered By: Daniel Luis on 02-13-2025 Urine RBC 0 SEEN /hpf 0-5 [facility] Monocyte percentageOrdered B y: Daniel Luis on 02-13-2025 Monocytes/100 WBC (Bld) 10.2 % High 0-10 [facility] Mucus LM Ql (Urine sed)Order ed By: Daniel Luis on 02-13-2025 Mucus Ql (Urine sed) 0 SEEN /hpf [facility] Neutrophil percentageOrdered By: Daniel Luis on 02-13-2025 Neutrophils/100 WBC (Bld) 40.3 % Low 47-70 [facility] Nitrite Test strip Ql (U)Ord ered By: Daniel Luis on 02-13-2025 Nitrite Ql (U) Negative Negative [facility] Nucleated red blood cell per centageOrdered By: Daniel Luis on 02-13-2025 Nucleated RBC/100 WBC (Bld) [Ratio] 0 % 0-5 [facility] Platelet countOrdered By: Willa Luis on 02-13-2025 Platelets (Bld) [#/Vol] 363 10*3/uL 150-450 [facility] Potassium (Unsp spec) [Mass/ Vol]Ordered By: Daniel Luis on 02-13-2025 Potassium [Moles/Vol] 4.1 mmol/L 3.3-5.1 [facility] Protein Test strip Ql (U)Ord ered By: Daniel Luis on 02-13-2025 Protein Ql (U) Negative Negative [facility] RBC Auto (Bld) [#/Vol]Ordere d By: Daniel Luis on 02-13-2025 RBC (Bld) [#/Vol] 5.45 10*6/uL 4.6-6.2 [facility] Serum creatinine measurement (mass/volume)Ordered By: Daniel Luis on 02-13-2025 Creatinine [Mass/Vol] 0.85 mg/dL 0.70-1.20 [facility] Serum globulin measurementOr dered By: Daniel Luis on 02-13-2025 Globulin (S) [Mass/Vol] 3.6 g/dL 2.2-4.2 [facility] Serum glucose measurement (m ass/volume)Ordered By: Daniel Luis on 02-13-2025 Glucose [Mass/Vol] 88 mg/dL 70-99 [facility] Serum or plasma alanine manzo otransferase (ALT) measurementOrdered By: Daniel Luis 02-13-2025 ALT [Catalytic activity/Vol] 26 U/L <47 [facility] Serum or plasma albumin michell urement (mass/volume)Ordered By: Daniel Luis 02-13-2025 Albumin [Mass/Vol] 4.7 g/dL 3.5-5.0 [facility] Serum or plasma albumin/glob ulin mass ratioOrdered By: Daniel Luis 02-13-2025 Albumin/Globulin [Mass ratio] 1.3 {ratio} 0.9-2.4 [facility] Serum or plasma alkaline charles sphatase measurementOrdered By: Daniel Luis 02-13-2025 ALP [Catalytic activity/Vol] 98 U/L 40-129 [facility] Serum or plasma calcium michell urement (mass/volume)Ordered By: Daniel Luis 02-13-2025 Calcium [Mass/Vol] 9.6 mg/dL 7.6-11.0 [facility] Serum or plasma urea nitroge n measurement (mass/volume)Ordered By: Remus Ungur on 02-13-2025 Urea nitrogen [Mass/Vol] 10 mg/dL 4-19 [facility] Sodium levelOrdered By: Remu s Ungur on 02-13-2025 Sodium [Moles/Vol] 138 mmol/L 133-145 [facility] Total proteinOrdered By: Rem us Ungur on 02-13-2025 Protein [Mass/Vol] 8.3 g/dL 5.9-8.4 [facility] Urinalysis, Completeon 02-13 BACTERIA 0 SEEN Normal None [facility]en [facility] Comment on above: Order Comment: CLEAN CATCH Performed By: #### L 400.0001 #### [facility] [address] [place], [address] EPI,SQUAMOUS 0 SEEN Normal 0-5 [facility] Comment on above: Order Comment: CLEAN CATCH Performed By: #### L 400.0001 #### [facility] [address] [place], [address] Mucus Ql (Urine sed) 0 SEEN Normal [facility] Comment on above: Order Comment: CLEAN CATCH Performed By: #### L 400.0001 #### [facility] [address] [place], [address] RBC 0 SEEN Normal 0-5 [facility] Comment on above: Order Comment: CLEAN CATCH Performed By: #### L 400.0001 #### [facility] [address] [place], [address] WBC 0 SEEN Normal 0-5 [facility] Comment on above: Order Comment: CLEAN CATCH Performed By: #### L 400.0001 #### [facility] [address] [place], [address] Urine blood detectionOrdered By: Remus Ungur on 02-13-2025 Urine Occult Blood Negative Negative [facility] Urine clarityOrdered By: Rem us Ungur on 02-13-2025 Clarity (U) Clear Clear [facility] Urine color determinationOrd ered By: Daniel Luis on 02-13-2025 Color (U) Straw Yellow [facility] Urine leukocyte esterase det ection by dipstickOrdered By: Daniel Luis on 02-13-2025 Leukocyte esterase Test strip Ql (U) Negative Negative [facility] Urine pHOrdered By: Daniel Un gur on 02-13-2025 pH (U) 7.0 [pH] 5.0 - 8.0 [facility] Urine sediment bacteria coun t by microscopy (number/high power field)Ordered By: Daniel Luis on 02-13-2025 Bacteria LM.HPF (Urine sed) [#/Area] 0 /[HPF] None Seen [facility] Urine specific gravity measu rementOrdered By: Daniel Luis on 02-13-2025 Specific gravity (U) [Rel density] 1.005 1.002-1.03 0 [facility] Urobilinogen Ql (U)Ordered B y: Daniel Luis on 02-13-2025 Urine Urobilinogen Normal mg/dl Normal [facility] White blood cell (WBC) count Ordered By: Daniel Luis on 02-13-2025 WBC (Bld) [#/Vol] 8.1 10*3/uL 4.4-11.0 [facility] White blood cell countOrdere d By: Daniel Luis on 02-13-2025 Urine WBC 0 SEEN /hpf 0-5 [facility] 12 Lead EKGon 12-06-2024 12 Lead EKG [facility] [address] [place] [address] 12 Lead EKG 12/06/24 1501 MR#: [id number] Acct: [id number] Name: MARBIN BOWSRE Malik Rep #: [id number] : 1980 44 From: Lance Parmar MD Attending Dr: Status: DEP ER Ordering Dr: Robin Perez TRAILER CHIEFJeannaC Date: 12/06/24 Location: ED Sex: M C Admitted: Test Reason : GENERAL Blood Pressure : */* mmHG Vent. Rate : 80 BPM Atrial Rate : 80 BPM P-R Int : 156 ms QRS Dur : 88 ms QT Int : 368 ms P-R-T Axes : 63 52 33 degrees QTcB Int : 424 ms Normal sinus rhythm Normal ECG Confirmed by LANCE PARMAR MD ([id number]), editor in chief LORRAINE DACOSTA ([id number]) on 12/08/2024 8:18:22 AM Referred By: Confirmed By: LANCE PARMAR MD 12/08/24 0818 Date Lance Parmar MD CC: EDITH Perez; NADIR Bruce; Dr. Alo Patiño, Signed [facility] Chest PA and Lateralon 12-06 Chest PA and Lateral [facility] [address] [place] [address] Chest PA and Lateral MR#: [id number] Acct: [id number] Name: MARBIN BOWSER Rep #: [id number] : 1980 M 44 From: Zay Gan MD PCP: Devin Bruce PA-C Status: REG ER Study: Chest PA and Lateral Date of Exam: 12/06/24 Exam# [id number] Ordering Dr: Robin Perez PROCEDURE: CHEST PA AND LATERAL REASON FOR EXAM: Cough TECHNIQUE: Single frontal image including the chest and abdomen. COMPARISON: None. FINDINGS: The cardiothymic contour is normal. The lungs are clear. Bowel gas pattern is normal. No evidence of bowel obstruction or free air. The bones are unremarkable. No radiopaque foreign body is identified. RAD/Chest PA and Lateral IMPRESSION: UNREMARKABLE SINGLE VIEW OF THE CHEST AND ABDOMEN. Reading Location: [facility] CC: EDITH Perez; NADIR Bruce Associate Director Of Development: Signed [facility] Emergency Department Summary on 12-06-2024 Emergency Department Summary [facility] Medical Records Department [address] [place] [address] Emergency Department Summary 12/06/24 MR#: [id number] Acct: [id number] Name: MARBIN BOWSER Rep #: [id number] : 1980 44 From: Robin SHARMA PCP: Devin Bruce PA-C Status:[facility] ER Location: ED Patient was seen and examined with nurse practitioner Robin All components of the history and physical confirmed and agreed. History of present illness and physical exam: Patient is a 44-year-old male with known significant past medical history who presents to the emergency department the chief complaint of cough, congestion, diffuse bodyaches and feeling overall fatigued. Patient states that several of his household members have been sick with similar symptoms and notes that he brought his younger son here today to be evaluated as well. Patient states that his chest does hurt when he coughs minimally. Patient denies any recent travel history denies any history of blood clots. Review of systems: Agree with above Physical exam: Agree with above MDM Patient is a 44-year-old male with no known significant past medical history who presents to the Emergency Department chief complaint of cough, congestion, not feeling well overall. On the differential diagnose includes but not limited to upper respiratory infection secondary viral etiology, pneumonia, ACS. Once workup is obtained reviewed he will be reevaluated. Patient's chest x-ray reviewed by myself and by radiology showed no acute cardiopulmonary processes. Patient did test positive for influenza A. Patient was encouraged to rotate Tylenol and ibuprofen moyzhp-sgl-duqsb as well as use the Zofran as prescribed for nausea. He was encouraged to ensure adequate hydration and return with worsening symptoms or any concerns otherwise he is to follow-up with his primary care physician outpatient setting. He is agreeable this plan all question concerns answered he is discharged home in stable condition. Final impression: Influenza A Disposition: Patient will be discharged home in stable condition Supervising attending attestation: Alo MCMULLEN History of Present Illness Chief Complaint: Cold Sx Narrative Narrative: Patient is a 44-year-old male with no significant ankle history, patient presents to the emergency department with complaints of cough, congestion, body aches, feeling fatigued. Patient states that he has similar symptoms but his entire family has. He is here today with his younger son. Patient denies any nausea or vomiting. Patient states when he coughs his chest hurts. PFSH PFSH Allergy/AdvReac Type Severity Reaction Status Date / Time No Known Allergies Allergy Verified 12/06/24 13:42 Social History Smoking Status: Never smoker ROS ROS ED ROS Narrative Constitutional: Negative for fever, weight loss, weakness. Positive for chills, fatigue Eyes: Negative for vision loss, vision change, double vision ENT: Negative for any sore throat, ear pain, congestion Cardiovascular: Negative for any chest pain, tightness, palpitations Respiratory: Negative for any sputum production, hemoptysis, dyspnea, dyspnea on exertion, orthopnea. Positive for cough, chest wall pain Gastrointestinal: Negative for any abdominal pain, nausea, vomiting, diarrhea, constipation, blood in stool, blood in vomit : Negative for any urinary frequency, dysuria, retention, blood in urine Muscle skeletal: Negative for any neck pain, back pain Neurological: Negative for any headache, syncope, dizziness Skin: Negative for any rashes, itching, abrasions, lacerations Psychiatric: Negative for any depression, anxiety, stress, suicidal ideation, homicidal ideation Hematologic: Negative for any excessive bruising, easy bleeding EXAM Physical Exam Narrative Exam Narrative: Vital signs reviewed. HEET: Head normocephalic atraumatic, TMs clear bilaterally. Posterior pharynx is clear, moist mucous membranes. Nares clear bilaterally. Neck: Supple with no lymphadenopathy or tenderness. No signs of meningismus. Cardiac: Regular rate and rhythm no murmurs gallops or rubs, equal peripheral pulses bilaterally. Respiratory: Lungs clear to auscultation bilaterally. No chest tenderness. Abdomen: Soft, nontender, nondistended. No abdominal bruit or pulsatile masses. No hepatosplenomegaly Extremities: No peripheral edema, no signs of gross trauma or deformity. Active full range of motion of all extremities. Neuro: Cranial nerves II through XII intact, no focal neurological deficits. Skin: Clean dry and intact with no rash, purpura, petechiae, vesicles or pustules. Backs/flank: No CVA tenderness, no midline spinal tenderness, no deformity. Psych: Normal mood and affect. No SI, HI or acute psychosis. Const Vital Signs: 12/06/24 13:42 Temper (more content not included)... [facility] Influenza virus A and B and SARS-CoV-2 (COVID-19) and Respiratory syncytial virus RNAOrdered By: Robin Perez on 12-06-2024 SARS-CoV-2 (COVID-19) RNA NYASIA+probe Ql (Unsp spec) Influenzae A Abnormal [facility] M100.678on 12-06-2024 SARS-CoV-2 (COVID-19) Ab IA Ql Normal Reference Range = Negative FLUABV+SARS-CoV-2+RSV Pnl Resp NYASIA+probe GeneXpert Instrument, PCR method SARS-CoV-2 (COVID 19) Negative INFLUENZA A A Positive A INFLUENZA B Negative RSV PCR Negative INFLUENZAE A [facility] Comment on above: Performed By: #### M 100.678 ####[facility] [address] [place], [place], [id number] BASICMETAon 08-10-2018 Calcium mass conc 8.6 mg/dL Normal 8.5-10.5 [facility] Comment on above: Performed By: #### 1 41089, 680667 ####[facility] [address] [place], [place] [id number]) [phone] Director: Gio Ibrahim MD Chloride molar conc 107 mmol/L Normal 100-109 [facility] Comment on above: Performed By: #### 1 49477, 076911 ####[facility] [address] [place], [place] [address]) [phone] Director: Gio Ibrahim MD CO2 molar conc 29.2 mmol/L Normal 21.0-32.0 [facility] Comment on above: Performed By: #### 1 65287, 117595 ####[facility] [address] [place], [place] [address]) [phone] Director: Gio Ibrahim MD Creatinine mass conc 0.9 mg/dL Normal 0.7-1.3 [facility] Comment on above: Performed By: #### 1 55580, 231985 ####[facility] [address] [place], [place] [address]) [phone] Director: Gio Ibrahim MD GFR AA >[address] [facility] Comment on above: Result Comment: Afri can Ethiopian GFR CalcMedical judgement is necessary to interpret GFR. The calculated GFR may not accurately reflect renal status in patients >70 years, women, acutely ill hospitalized patients and patients with acute renal failure or known renal disease. The MDRD GFR formula is valid only for adults greater than 18 years of age.Note:Creatinine clearance (not GFR) should be used for drug dosing. Performed By: #### 1 69843, 716597 ####[facility] [address] [place] [address] Medical Director: Gio Ibrahim MD GFR/1.73 sq M predicted among non-blacks MDRD vol rate/area (S/P/Bld) mL/min/{1.73_m2} Normal [facility] Comment on above: Result Comment: Non GFR CalcMedical judgement is necessary to interpret GFR. The calculated GFR may not accurately reflect renal status in patients >70 years, women, acutely ill hospitalized patients and patients with acute renal failure or known renal disease. The MDRD GFR formula is valid only for adults greater than 18 years of age.Note:Creatinine clearance (not GFR) should be used for drug dosing. Performed By: #### 1 89618, 668286 ####[facility] [address] [place] [address] Medical Director: Gio Ibrahim MD Glucose mass conc 101 mg/dL High 72-100 [facility] Comment on above: Result Comment: Caitie puncture should occur prior to sulfasalazine administration due to the potential for falsely depressed results. Venipuncture should occur prior to sulfapyridine administration due to the potential falsely elevated results.Baseline assay values before administration of sulfasalazine and sulfapyridine therapy would not be affected. Performed By: #### 1 82375, 986140 ####[facility] [address] [place] [address] Medical Director: Gio Ibrahim MD Osmolality 280 mOsm/kg Normal 275-295 [facility] Comment on above: Performed By: #### 1 01531, 558491 ####[facility] [address] [place] [address] Medical Director: Gio Ibrahim MD Potassium molar conc 4.6 mmol/L Normal 3.5-5.1 [facility] Comment on above: Performed By: #### 1 80702, 622571 ####[facility] [address] [place] [address] Medical Director: Gio Ibrahim MD Sodium molar conc 141 mmol/L Normal 135-145 [facility] Comment on above: Performed By: #### 1 28423, 446851 ####[facility] [address] [place] [address] Medical Director: Gio Ibrahim MD Urea nitrogen mass conc 8 mg/dL Low 10-20 [facility] Comment on above: Performed By: #### 1 66400, 741589 ####[facility] [address] [place] [address] Medical Director: Gio Ibrahim MD Urea nitrogen/Creatinine mass ratio 9.2 mg/mg Normal [facility] Comment on above: Performed By: #### 1 62106, 554452 ####[facility] [address] [place] [address] Medical Director: Gio Ibrahim MD CBCNDon 08-10-2018 Erythrocyte distribution width Auto Ratio (RBC) 13.2 % Normal 11.5-14.5 [facility] Comment on above: Performed By: #### 1 36990, 145273 ####[facility] [address]xfxkv[address]44 [place] [address] Medical Director: Gio Ibrahim MD Hematocrit Auto Volume Fraction (Bld) 38.9 % Low 41.0-52.0 [facility] Comment on above: Performed By: #### 1 98524, 649455 ####[facility] [address] [place] [address] Medical Director: Gio Ibrahim MD Hemoglobin mass conc (Bld) 13.6 g/dL Normal 13.5-17.5 [facility] Comment on above: Performed By: #### 1 03301, 908893 ####[facility] [address] [place] [address] Medical Director: Gio Ibrahim MD MCH Auto Entitic mass (RBC) 30.6 pg Normal 27.0-34.0 [facility] Comment on above: Performed By: #### 1 33162, 215272 ####[facility] [address]fx[address] [place] [address] Medical Director: Gio Ibrahim MD MCHC Auto mass conc (RBC) 34.9 g/dL Normal 32.0-37.0 [facility] Comment on above: Performed By: #### 1 17629, 254621 ####[facility] [address] [place] [address] Medical Director: Gio Ibrahim MD MCV Auto Entitic volume (RBC) 87.7 fL Normal 80.0-100.0 [facility] Comment on above: Performed By: #### 1 00250, 398723 ####[facility] [address] [place] [address] Medical Director: Gio Ibrahim MD Platelet mean volume Auto Entitic volume (Bld) 7.8 fL Normal 7.4-10.4 [facility] Comment on above: Performed By: #### 1 88089, 480473 ####[facility] [address]xt[address] [place] [address] Medical Director: Gio Ibrahim MD Platelets Auto #/vol (Bld) 261 x1000 Normal 150-450 [facility] Comment on above: Performed By: #### 1 92101, 058001 ####[facility] [address] [place] [address] Medical Director: Gio Ibrahim MD RBC Auto #/vol (Bld) 4.43 x10 Low 4.70-6.10 [facility] Comment on above: Result Comment: Note : RBC morphology is normal unless otherwise stated. Evaluation performed only if differential is requested. Performed By: #### 1 76100, 615730 ####[facility] [address] [place], [place] [address]) [phone] Director: Gio Ibrahim MD WBC Auto #/vol (Bld) 10.4 10*3/uL Normal So [facility] Comment on above: Performed By: #### 1 07051, 018419 ####[facility] [address] [place], [place] [address]) [phone] Director: Gio Ibrahim MD WBC Auto #/vol (Bld) 10.4 x10 Normal 4.5-11.0 [facility] Comment on above: Performed By: #### 1 01015, 345831 ####[facility] [address] [place], [place] [address]) [phone] Director: Gio Ibrahim MD Progress Note-Physicianon Protein mass conc Patient: JENNIFER BOWSER Age: 38 years Sex: Male : 1980 Associated Diagnoses: None Author: ILIANA CORREA, CLAUDE Subjective: Mr. Bowser is a 38 year old gentleman admitted with dental abscess and right facial cellulitis. He reports pain is better. Swelling remains about the same. No nausea or vomiting.Objective: Vital Signs (last 24 hrs) Last Charted Temp Oral 37 degC (AUG 09 11:30)Heart Rate Peripheral 77 bpm (AUG 10 06:16)Resp Rate 16 br/min (AUG 10 06:16)SBP 123 mmHg (AUG 10 06:16)DBP 77 mmHg (AUG 10 06:16)Weight 90.3 kg (AUG 09:)Height 187 cm (AUG 09 20:23)BMI 25.82 (AUG 09:)General: alert, no acute distress, lying in bed.HENT: pupils equal round and reactive to light. Extraocular movements are intact. There is swelling of the right jaw with slight erythema.Heart: regular rate and rhythm. No murmurs, rubs or gallops, normal S1 & S2.Lungs: clear to asucultation bilaterally, no wheezing or rhonchi.Abdomen: soft, nontender, normal bowel sounds.Extremities: no cyanosis clubbing or edema.Labs (Last four charted values)WBC 10.4 (AUG 10) H 11.7 (AUG 09) Hgb 13.6 (AUG 10) 15.6 (AUG 09) Hct L 38.9 (AUG 10) 44.3 (AUG 09) Plt 261 (AUG 10) 316 (AUG 09) Na 141 (AUG 10) 139 (AUG 09) K 4.6 (AUG 10) 4.2 (AUG 09) CO2 29.2 (AUG 10) 26.8 (AUG 09) Cl 107 (AUG 10) 104 (AUG 09) Cr 0.9 (AUG 10) 0.8 (AUG 09) BUN L 8 (AUG 10) L 7 (AUG 09) Glucose Random H 101 (AUG 10) 79 (AUG 09) Ca 8.6 (AUG 10) 9.0 (AUG 09) INR .9 (AUG 09) Troponin <0.015 (AUG 10) <0.015 (AUG 09) <0.015 (AUG 09) XR CHEST 2V PA LAT 08/09/2018 12:23 PM EDT: No acute cardiopulmonary process.CT FACIAL AREA W CONTRAST: Suspect developing abscess at the right upper 2nd molar with surrounding soft tissue stranding and swelling along the inner and outer margin of the maxilla. Swelling and stranding also noted within the right subcutaneous soft tissues. No abscess. No subcutaneous gas. Sinus disease. Assessment and Plan:Dental abscess and facial cellultiis: CT showed possible abscess of the right upper 2nd molar with surrounding soft tissue stranding and swelling along the inner and outer margin of the maxilla. There is no drainable abscess. Slight facial cellulitis. Pain is better today.- Continue IV unasyn.- Pain control.- Will need outpatient dental follow up.Elevated white blood cell count unspecified: likely due to dental abscess and cellulitis. No other SIRS criteria. WBC has normalized.- Monitor. DVT Prophylaxis: sc enoxaparin. Code status: Full. Disposition: Discharge home today. Normal [facility] TROPONINon 08-10-2018 Troponin I.cardiac mass conc ng/mL Normal 0.000-0.[address] [facility] Comment on above: Order Comment: First Troponin will be drawn STAT, Report abnormal results to Attending Result Comment: This test is a quantitative determination of cardiac troponin I. High levels of serum biotin may interfere with this test. Performed By: #### 1 19761 ####[facility] [address] [place] [address] Medical Director: Gio Ibrahim MD APTTon 08-09-2018 aPTT Coag time (Bld) 27.5 s Normal 25.0-36.0 [facility] Comment on above: Performed By: #### 1 25567, 439801, 052937, 977713, 3555967, 196972 ####[facility] [address] [place] [address] Medical Director: Gio Ibrahim MD AUTO DIFFon 08-09-2018 Basophils Auto #/vol (Bld) 0.06 x1000 Normal 0.00-0.20 [facility] Comment on above: Performed By: #### 1 41111, 287106, 050861, 869164, 6498723, 941529 ####[facility] [address]em[address] [place] [address] Medical Director: Gio Ibrahim MD Basos % 0.5 % Normal [facility] Comment on above: Performed By: #### 1 55038, 460283, 961250, 378556, 7232621, 882933 ####[facility] [address] [place] [address] Medical Director: Gio Ibrahim MD Eos Count 0.06 x1000 Normal 0.00-0.50 [facility] Comment on above: Performed By: #### 1 12543, 680335, 521941, 267656, 7472081, 418082 ####[facility] [address] [place] [address] Medical Director: Gio Ibrahim MD Eosinophils/100 WBC Auto (Bld) 0.5 % Normal [facility] Comment on above: Performed By: #### 1 42712, 504589, 108712, 729329, 8102780, 050653 ####[facility] [address] [place] [address] Medical Director: Gio Ibrahim MD Lymphocytes Auto #/vol (Bld) 2.24 x1000 Normal 1.20-4.80 [facility] Comment on above: Performed By: #### 1 18472, 035232, 552379, 464697, 8559778, 666454 ####[facility] [address] [place] [address] Medical Director: Gio Ibrahim MD Lymphocytes/100 WBC Auto (Bld) 19.1 % Normal [facility] Comment on above: Performed By: #### 1 95179, 971006, 605658, 767644, 4764490, 994875 ####[facility] [address] [place] [address] Medical Director: Gio Ibrahim MD Barber Count 1.19 x1000 High 0.10-1.00 [facility] Comment on above: Performed By: #### 1 65340, 171087, 524962, 721184, 4416992, 611732 ####[facility] [address] [place] [address] Medical Director: Gio Ibrahim MD Monocytes/100 WBC Auto (Bld) 10.1 % Normal [facility] Comment on above: Performed By: #### 1 71335, 114507, 668110, 760767, 7986517, 836535 ####[facility] [address] [place] [address] Medical Director: Gio Ibrahim MD Neutrophils Auto #/vol (Bld) 8.19 x1000 Normal 1.40-8.80 [facility] Comment on above: Performed By: #### 1 08300, 658455, 781074, 571955, 8337219, 198531 ####[facility] [address] [place] [address] Medical Director: Gio Ibrahim MD Neutrophils/100 WBC Auto (Bld) 69.7 % Normal [facility] Comment on above: Performed By: #### 1 83068, 813801, 320225, 531994, 6380922, 639381 ####[facility] [address] [place] [address] Medical Director: Gio Ibrahim MD COMPMETAon 08-09-2018 Albumin/Globulin mass ratio 0.9 {ratio} Normal [facility] [facility] Comment on above: Performed By: #### 1 38517, 002602, 435433, 649663, 9993094, 118143 ####[facility] [address]wt[address] [place] [address] Medical Director: Gio Ibrahim MD GFR AA >[address] [facility] Comment on above: Result Comment: Afri can Ethiopian GFR CalcMedical judgement is necessary to interpret GFR. The calculated GFR may not accurately reflect renal status in patients >70 years, women, acutely ill hospitalized patients and patients with acute renal failure or known renal disease. The MDRD GFR formula is valid only for adults greater than 18 years of age.Note:Creatinine clearance (not GFR) should be used for drug dosing. Performed By: #### 1 52592, 199052, 523355, 482030, 3400891, 644503 ####[facility] [address] [place] [address] Medical Director: Gio Ibrahim MD GFR/1.73 sq M predicted among non-blacks MDRD vol rate/area (S/P/Bld) mL/min/{1.73_m2} Normal [facility] Comment on above: Result Comment: Non GFR CalcMedical judgement is necessary to interpret GFR. The calculated GFR may not accurately reflect renal status in patients >70 years, women, acutely ill hospitalized patients and patients with acute renal failure or known renal disease. The MDRD GFR formula is valid only for adults greater than 18 years of age.Note:Creatinine clearance (not GFR) should be used for drug dosing. Performed By: #### 1 46670, 908496, 166512, 227669, 5335412, 449328 ####[facility] [address]k15[address] [place] [address] Medical Director: Gio Ibrahim MD Globulin Calculated mass conc (S) 4.5 g/dL Normal [facility] Comment on above: Performed By: #### 1 94188, 624850, 888374, 441332, 0472796, 503821 ####[facility] [address]ueqtz[address] [place] [address] Medical Director: Gio Ibrahim MD Osmolality 274 mOsm/kg Low 275-295 [facility] Comment on above: Performed By: #### 1 68744, 760858, 299685, 895424, 6891304, 598617 ####[facility] [address]lsghp[address] [place] [address] Medical Director: Gio Ibrahim MD Urea nitrogen/Creatinine mass ratio 8.3 mg/mg Normal [facility] Comment on above: Performed By: #### 1 43566, 542150, 189973, 551956, 9138773, 289479 ####[facility] [address]xeuj[address] [place] [address] Medical Director: Gio Ibrahim MD Albumin mass conc 3.9 g/dL Normal 3.4-5.0 [facility] Comment on above: Performed By: #### 1 82030, 380492, 838932, 805857, 7509389, 053690 ####[facility] [address] [place] [address] Medical Director: iGo Ibrahim MD Alk Phos 104 unit/L Normal 45-117 [facility] Comment on above: Performed By: #### 1 74676, 902113, 369771, 204483, 5699785, 293455 ####[facility] [address]zh[address] [place] [address] Medical Director: Gio Ibrahim MD Bilirubin mass conc 0.48 mg/dL Normal 0.20-1.00 [facility] Comment on above: Performed By: #### 1 82092, 176412, 742155, 728517, 3734519, 402921 ####[facility] [address]wxacbon[address] [place] [address] Medical Director: Gio Ibrahim MD Calcium mass conc 9.0 mg/dL Normal 8.5-10.5 [facility] Comment on above: Performed By: #### 1 25647, 319571, 244451, 225460, 3774322, 060547 ####[facility] [address]xz[address] [place] [address] Medical Director: Gio Ibrahim MD Chloride molar conc 104 mmol/L Normal 100-109 [facility] Comment on above: Performed By: #### 1 44688, 799576, 835959, 796698, 0636038, 206368 ####[facility] [address]ifruacl[address]116 [place] [address] Medical Director: Gio Ibrahim MD CO2 molar conc 26.8 mmol/L Normal 21.0-32.0 [facility] Comment on above: Performed By: #### 1 16222, 179124, 566093, 038081, 5125176, 795005 ####[facility] [address]wgvml769[address] [place] [address] Medical Director: Gio Ibrahim MD Creatinine mass conc 0.8 mg/dL Normal 0.7-1.3 [facility] Comment on above: Performed By: #### 1 41666, 483847, 650262, 101179, 7263558, 254577 ####[facility] [address]ltalf30230 [place] [address] Medical Director: Gio Ibrahim MD Glucose mass conc 79 mg/dL Normal 72-100 [facility] Comment on above: Result Comment: Caitie puncture should occur prior to sulfasalazine administration due to the potential for falsely depressed results. Venipuncture should occur prior to sulfapyridine administration due to the potential falsely elevated results.Baseline assay values before administration of sulfasalazine and sulfapyridine therapy would not be affected. Performed By: #### 1 53369, 299202, 568098, 200465, 6529501, 986842 ####[facility] [address] [place] [address] Medical Director: Gio Ibrahim MD GOT 20 unit/L Normal 15-37 [facility] Comment on above: Result Comment: Caitie puncture should occur prior to sulfasalazine and/or sulfapyridine administration due to the potential for falsely depressed results.Baseline assay values before administration of sulfasalazine and sulfapyridine therapy would not be affected. Performed By: #### 1 12472, 222927, 407266, 129283, 7499572, 418014 ####[facility] [address] [place] [address] Medical Director: Gio Ibrahim MD GPT 37 unit/L Normal 16-61 [facility] Comment on above: Result Comment: Caitie puncture should occur prior to sulfasalazine and/or sulfapyridine administration due to the potential for falsely depressed results.Baseline assay values before administration of sulfasalazine and sulfapyridine therapy would not be affected. Performed By: #### 1 64590, 571054, 888095, 553195, 1599866, 205921 ####[facility] [address]el[address] [place], [place] [address]) [phone] Director: Gio Ibrahim MD Potassium molar conc 4.2 mmol/L Normal 3.5-5.1 [facility] Comment on above: Performed By: #### 1 70269, 723471, 338600, 478848, 7816531, 419679 ####[facility] [address]38[address] [place], [place] [address]) [phone] Director: Gio Ibrahim MD Protein mass conc 8.4 g/dL Normal 6.0-8.5 [facility] Comment on above: Performed By: #### 1 25881, 176734, 300158, 610464, 0480846, 377780 ####[facility] [address] [place], [place] [address]) [phone] Director: Gio Ibrahim MD Sodium molar conc 139 mmol/L Normal 135-145 [facility] Comment on above: Performed By: #### 1 85002, 406644, 868625, 656797, 0282486, 634728 ####[facility] [address]uxknqbu[address]29 [place] [address] Medical Director: Gio Ibrahim MD Urea nitrogen mass conc 7 mg/dL Low 10-20 [facility] Comment on above: Performed By: #### 1 80006, 416021, 571456, 832239, 0548855, 107641 ####[facility] [address] [place], [place] [address]) [phone] Director: Gio Ibrahim MD CT FACIAL AREA W CONTRASTon 08-09-2018 CT FACIAL AREA W CONTRAST FINAL REPORTEXAM: CT FACIAL AREA W CONTRASTHISTORY: RT CHEEK SWELLING ? DENTAL ABSCESS 75ML ISOVUE 300 TECHNIQUE: CT of the maxillofacial region with IV contrast. Coronal and sagittal reconstructed images were provided.PRIORS: None currently available.FINDINGS: Right upper 2nd molar on series 3:33 demonstrates lucencies around the root which may represent abscesses or dentigerous lesions. Abscesses favor. Increased soft tissue swelling along the inner and outer margin of the maxilla suggest inflammation and swelling. No distinct fluid collection with rim enhancement to suggest abscess identified. Stranding in the subcutaneous fat and mild right facial skin thickening may also represent swelling and inflammation. No bony destruction. No subcutaneous gas. Reactive lymph nodes noted within the right upper cervical region. Nasopharynx is unremarkable. Oropharynx is unremarkable. Floor of the mouth is intact. Epiglottis is unremarkable. Aryepiglottic folds are unremarkable. The globes are intact. There is no vitreous hemorrhage. The lenses are unremarkable. There is no retinal hemorrhage. The retro-bulbar regions are grossly negative.There is no orbital osseous fracture.Paranasal sinuses are developed. Mild mucosal thickening in both frontal sinuses. Ebil-mv-mfxcstzi mucosal thickening in both ethmoid sinuses. Moderate mucosal thickening in the right maxillary sinus. No nasal cavity lesion identified. The paranasal osseous structures are intact. Nasal bridge appears intact. The nasal septum is mildly deviatedNo facial fractures. Temporal bones are unremarkable. Mastoid air cells are aerated.IMPRESSION: Suspect developing abscess at the right upper 2nd molar with surrounding soft tissue stranding and swelling along the inner and outer margin of the maxilla. Swelling and stranding also noted within the right subcutaneous soft tissues. No abscess. No subcutaneous gas. Sinus disease. August 09, 2018 at 1237 PDT: I discussed the findings over phone with Dr. Miller. Normal [facility] Comment on above: Order Comment: r/o d ental abscess rigth side Result Comment: Tech nologist: KADIEDictated By: RAYO CORREA, TONYSigned By: RAYO CORREA, TONYSigned Out: 08/09/18 15:38:33 APRIL Progress Note-ED Nurseon 08-09-2018 Protein mass conc PT TO ER C/O FEELING WEAK AND LEGS GIVING OUT TODAY. PT KOREY LOC. PT ALSO STATES HE HAS HAD SOME RECENT SWELLING TO RIGHT SIDE OF FACE 5 MONTHS AFTER DENTAL WORK. PT STATES HE HAD NOTIFIED THE DENTIST AND THEY HAD STATED NOTHING WRONG WITH TOOTH. AT BEDSIDE FOR EVAL. LABS AND EKG COMPLETED FROM [id number]: medicated as ordered. 1506: Pt returned from Ct scan via cart with KevinDr. Miller into discuss poc with pt at this time.Admitting md at bedside eating meal tray at bedside.pt reports pain returning Dr. Miller aware. will medicated as ordered 2nd set of enzymes drawn.Pt ambulated to bathroom, steady gait noted. aware of bed assignment.report given to Elizabeth MCKOY on [address] [facility] ED Physician Reporton 2017 ED Physician Report Patient: JENNIFER BOWSER Age: 38 years Sex: Male : 1980 Associated Diagnoses: Facial cellulitis; Syncope Author: CLARENCE MILLER MD Basic Information Time seen: Time Seen:CLARENCE MILLER MD / 08/09/2018 13:48. History source: Patient. Arrival mode: Private vehicle. History limitation: None. Additional information: Dr. Clarence Miller: I personally performed the services described in the documentation, reviewed and edited the documentation which was dictated to the scribe in my presence, and it accurately records my words and actions.. History of Present Illness The patient presents with near syncope. The onset was just prior to arrival. The course/duration of symptoms is improving. The location where the incident occurred was unknown. The exacerbating factor is none. Therapy today: none. Preceding symptoms: weakness. Associated symptoms: chills and R facial swelling/pain, R upper tooth pain, collapse secondary to near syncope w/o CHI or LOC. . Pt is a 38 y.o. M presenting to the ED s/p near syncopal episode w/ collapse and w/o CHI or injury [employer]. Pt states that he felt weak prior to the episode. No previous episodes in the past. He is unsure if it is related, but he is also c/o R upper dental pain w/ facial pain/swelling and chills for the past 2 days. He reports throbbing pain prior to the episode as well. Explains that approximately 5 mo ago he had similar pain and had fillings placed at the dentist. He then started having pain again 2 days ago over the same tooth. Pt denies CP, SOB, fever, N/V, abd pain, and any other signs/sx/complaints at this time. . Review of Systems Constitutional symptoms: Chills, No fever, Skin symptoms: No rash, Eye symptoms: No recent vision problems, ENMT symptoms: R facial pain/swelling, No sore throat, , Mouth: Pain, swelling, dental pain. Respiratory symptoms: No shortness of breath, no cough. Cardiovascular symptoms: No chest pain, Gastrointestinal symptoms: No abdominal pain, no vomiting, no diarrhea. Genitourinary symptoms: No dysuria, Musculoskeletal symptoms: No back pain, no Muscle pain. Neurologic symptoms Weakness, near syncope w/ collapse w/o CHI or other injury, No numbness, Additional review of systems information: All other systems reviewed and otherwise negative. Health Status Allergies: No known allergies. Medications: (Selected) Inpatient MedicationsOrderedNormal Saline Bolus (0.9%NaCl): 1,000 mL, 1000 mL/hr, Fluid Bolus IVPB, ONCEZofran ODT: 4 mg = 1 tabs, ORAL, ONCEketorolac = Toradol: 30 mg = 1 mL, IV Push, ONCEmorphine: 2 mg = 1 mL, IV Push, ONCEPrescriptionsPrescribedPe rcocet 5/325 ([id number]) oral tablet: See Instructions, 1 tabs ORAL Q4H - 6HOURS, PRN: for pain, 4 tabs, 0 Refill(s), per nurse's notes. Past Medical/ Family/ Social History Medical history: Unknown. Surgical history: Unknown. Family history: Unknown. Physical Examination Vital Signs Vital Signs 08/09/2018 11:30 EDT Temperature Oral 37 degC NORMAL Peripheral Pulse Rate 93 bpm NORMAL Respiratory Rate 18 br/min NORMAL Systolic Blood Pressure 145 mmHg HI Diastolic Blood Pressure 90 mmHg NORMAL SpO2 97 % NORMAL Height/Length Dosing 187 cm Weight Dosing 90.3 kg Body Mass Index Dosing 26 . General: Alert. Skin: Warm, dry, no rash. Head: Normocephalic, atraumatic. Neck: Supple, trachea midline. Eye: Pupils are equal, round and reactive to light, extraocular movements are intact. Ears, nose, mouth and throat: Mouth: tense tenderness and diffuse swelling to the upper gingiva w/o fluctuance or obvious abscess.No sublingual tenderness or swelling, no fluctuance, Tooth: Right, upper, molar, tender. Cardiovascular: Regular rate and rhythm, No murmur, No edema. Respiratory: Lungs are clear to auscultation, respirations are non-labored, breath sounds are equal. Gastrointestinal: Soft, Nontender, Non distended, Normal bowel sounds. Back: Normal range of motion. Musculoskeletal: Normal ROM, normal strength. Psychiatric: Cooperative. Neurological Alert and oriented to person, place, time, and situation, No focal neurological deficit observed, normal sensory observed, normal motor observed, normal speech observed. Medical Decision Making Documents reviewed: Emergency department nurses' notes, flowsheet, emergency department records, prior records. Electrocardiogram: Time 08/09/2018 11:34:00, rate 93, normal sinus rhythm, EP Interp. Results review: Lab results : Laboratory 08/09/2018 13:51 EDT Estimated Creatinine Clearance 141.20 mL/min 08/09/2018 12:55 EDT BUN 7 mg/dL LOW Na 139 mmol/L NORMAL K 4.2 mmol/L NORMAL Chloride 104 mmol/L NORMAL CO2, venous 26.8 mmol/L NORMAL Glucose 79 mg/dL NORMAL Creatinine 0.8 mg/dL NORMAL Total Protein 8.4 g/dL NORMAL Calcium 9.0 mg/dL NORMAL Bilirubin, Total 0.48 mg/dL NORMAL Alk Phos 104 unit/L NORMAL GOT 20 unit/L NORMAL GPT 37 unit/L NORMAL BUN/Creat Ratio 8.3 NA Calculated Osmolality 274 mOsm/kg LOW Globulin 4.5 g/dL NA A/G Ratio 0.9 NA ALB 3.9 g/dL NORMAL TROPONIN <0.015 ng/mL NORMAL Glomerular Filtration Rate >60 mL/min/1.73m? NA GFR AA >60 NA Protime Patient 9.8 seconds NORMAL INR 0.9 NA APTT Patient 27.5 seconds NORMAL WBC 11.7 x10 RBC 5.02 x10 HGB 15.6 g/dL NORMAL HCT 44.3 % NORMAL MCV 88.1 fL NORMAL MCH 31.0 pg NORMAL MCHC 35.1 g/dL NORMAL RDW 13.2 NORMAL Platelet 316 x1000 NORMAL MPV 7.8 fL NORMAL Nucleated RBC 0 /100WBC NA Lymph % 19.1 % NA Barber % 10.1 % NA Neutrophil % 69.7 % NA Eosin % 0.5 % NA Basos % 0.5 % NA Lymph Count 2.24 x1000 NORMAL Barber Count 1.19 x1000 HI Neutrophil Count (ANC) 8.19 x1000 NORMAL Eos Count 0.06 x1000 NORMAL Baso Count 0.06 x1000 NORMAL . Radiology results: Result type: CT Facial Area with contrastResult date: August 09, 2018 15:05 EDTResult status: (Final)Result title: CT FACIAL AREA W CONTRASTPerformed by: YASMIN CADE MD on August 09, 2018 15:38 EDTVerified by: YASMIN CADE MD on August 09, 2018 15:38 EDTEncounter info: [id number], [facility], Observation, 08/09/2018 - * Final Report *Reason For ExamSWELLINGCT FACIAL AREA W CONTRASTFINAL REPORTEXAM: CT FACIAL AREA W CONTRASTHISTORY: RT CHEEK SWELLING ? DENTAL ABSCESS 75ML ISOVUE 300 TECHNIQUE: CT of the maxillofacial region with IV contrast. Coronal and sagittal reconstructed images were provided.PRIORS: None currently available.FINDINGS: Right upper 2nd molar on series 3:33 demonstrates lucencies around the root which may represent abscesses or dentigerous lesions. Abscesses favor. Increased soft tissue swelling along the inner and outer margin of the maxilla suggest inflammation and swelling. No distinct fluid collection with rim enhancement to suggest abscess identified. Stranding in the subcutaneous fat and mild right facial skin thickening may also represent swelling and inflammation. No bony destruction. No subcutaneous gas. Reactive lymph nodes noted within the right upper cervical region. Nasopharynx is unremarkable. Oropharynx is unremarkable. Floor of the mouth is intact. Epiglottis is unremarkable. Aryepiglottic folds are unremarkable. The globes are intact. There is no vitreous hemorrhage. The lenses are unremarkable. There is no retinal hemorrhage. The retro-bulbar regions are grossly negative.There is no orbital osseous fracture.Paranasal sinuses are developed. Mild mucosal thickening in both frontal sinuses. Ybmv-lo-vgswpgrl mucosal thickening in both ethmoid sinuses. Moderate mucosal thickening in the right maxillary sinus. No nasal cavity lesion identified. The paranasal osseous structures are intact. Nasal bridge appears intact. The nasal septum is mildly deviatedNo facial fractures. Temporal bones are unremarkable. Mastoid air cells are aerated.IMPRESSION: Suspect developing abscess at the right upper 2nd molar with surrounding soft tissue stranding and swelling along the inner and outer margin of the maxilla. Swelling and stranding also noted within the right subcutaneous soft tissues. No abscess. No subcutaneous gas. Sinus disease. August 09, 2018 at 1237 PDT: I discussed the findings over phone with Dr. Miller.Signature LineTechnologist: DEVIN ENGLEDictated By: BOB CADE MDYSigned By: Kati CADE MD Out: 08/09/18 15:38:33This document has an imageResult type: CHEST 2V (PA/LAT)Result date: August 09, 2018 12:28 EDTResult status: (Final)Result title: XR CHEST 2V PA LATPerformed by: Fransisca Turcios on August 09, 2018 12:28 EDTVerified by: JANNIE ADAIR MD on August 09, 2018 12:46 EDTEncounter info: [id number], [facility], Observation, 08/09/2018 - * Final Report *Reason For ExamCHEST PAINReportEXAM: XR CHEST 2V PA LAT 08/09/2018 12:23 PM EDTHISTORY: CHEST PAINCOMPARISON: None.FINDINGS: Frontal and lateral projections were obtained. The heart isnormal in size. The trachea is in midline. There is no mediastinalwidening. Tonya are unremarkable. No focal infiltrates, pleuraleffusions, or pneumothoraces are seen. There is no bony destruction.SUMMARY: No acute cardiopulmonary process.Signature LineTechnologist: ROBERTH MARTÍNEZBDictated By: Junaid AADIR MDgned By: Mere ADAIR MD Out: 08/09/18 12:46:09This document has an image. Reexamination/ Reevaluation Time: 08/09/2018 16:27:00 . Vital signs results included from flowsheet : Vital Signs 08/09/2018 15:00 EDT Heart Rate Monitored 91 bpm NORMAL Peripheral Pulse Rate 91 bpm NORMAL Respiratory Rate 17 br/min NORMAL Systolic Blood Pressure 147 mmHg HI Diastolic Blood Pressure 94 mmHg HI Mean Arterial Pressure, Cuff 112 mmHg SpO2 94 % NORMAL Oxygen Therapy Room air Notes: Discussed today's findings, in addition to providing specific details for the plan of care and counseling regarding the diagnosis, prognosis, and need for observation admission. All questions were answered.. 38-year-old male who presents with syncope.38-year-old male who presents with syncope.. Patient also has 2 days of increasing RIGHT upper tooth pain and facial swelling. CT reveals apical abscess with overlying significant cellulitis. patient started on IV Unasyn, will be admitted for observation for syncope infection. Impression and Plan Diagnosis Facial cellulitis ([id number] L03.211, Admitting, Medical) Syncope ([id number], Admitting, Medical) Plan Disposition: Admit time 08/09/2018 16:29:00, Place in Observation Unit, ILIANA CORREA, CLAUDE, Pt is being admitted to outpatient with observation services. Counseled: Patient, Regarding diagnosis, Regarding diagnostic results, Regarding treatment plan, Patient indicated understanding of instructions. Notes: I, Elizabeth Dhaliwal, scribing for and in the presence of Dr. Clarence Miller MD. Scribe Signature; Billy Burrows, 08/09/2018 14:42 . Burton MILLER MD 08/13/2018 09:[address] [facility] HEMOon 08-09-2018 DIFF? No Normal [facility] Comment on above: Performed By: #### 1 79768, 652688, 991131, 011052, 5949263, 316884 ####[facility] [address] [place] [address] Medical Director: Gio Ibrahim MD Erythrocyte distribution width Auto Ratio (RBC) 13.2 % Normal 11.5-14.5 [facility] Comment on above: Performed By: #### 1 90775, 991366, 679885, 140009, 6464605, 455281 ####[facility] [address]47[address] [place] [address] Medical Director: Gio Ibrahim MD Hematocrit Auto Volume Fraction (Bld) 44.3 % Normal 41.0-52.0 [facility] Comment on above: Performed By: #### 1 99972, 131754, 912309, 689192, 6104275, 849011 ####[facility] [address]amxj[address] [place] [address] Medical Director: Gio Ibrahim MD Hemoglobin mass conc (Bld) 15.6 g/dL Normal 13.5-17.5 [facility] Comment on above: Performed By: #### 1 20061, 599655, 895049, 667148, 6080740, 928734 ####[facility] [address]vx[address]79[address] [place], [place] [address]) [phone] Director: Gio Ibrahim MD MCH Auto Entitic mass (RBC) 31.0 pg Normal 27.0-34.0 [facility] Comment on above: Performed By: #### 1 16946, 255316, 595778, 223292, 9513164, 336180 ####[facility] [address]fu[address] [place], [place] [address]) [phone] Director: Gio Ibrahim MD MCHC Auto mass conc (RBC) 35.1 g/dL Normal 32.0-37.0 [facility] Comment on above: Performed By: #### 1 71340, 380024, 259166, 573886, 1830240, 556386 ####[facility] [address]op[address]cky41487 [place], [place] [address]) [phone] Director: Gio Ibrahim MD MCV Auto Entitic volume (RBC) 88.1 fL Normal 80.0-100.0 [facility] Comment on above: Performed By: #### 1 70276, 450467, 410258, 416891, 8564711, 533954 ####[facility] [address]rj[address] [place], [place] [address]) [phone] Director: Gio Ibrahim MD Nucleated RBC #/vol (Bld) 0 /100WBC Normal [facility] Comment on above: Performed By: #### 1 74744, 244493, 799813, 158675, 1984543, 519180 ####[facility] [address]rpv[address] [place], [place] [address]) [phone] Director: Gio Ibrahim MD Platelet mean volume Auto Entitic volume (Bld) 7.8 fL Normal 7.4-10.4 [facility] Comment on above: Performed By: #### 1 59598, 883684, 866714, 490942, 9230524, 920377 ####[facility] [address]43[address] [place] [address] Medical Director: Gio Ibrahim MD Platelets Auto #/vol (Bld) 316 x1000 Normal 150-450 [facility] Comment on above: Performed By: #### 1 45293, 194214, 177334, 275471, 2619901, 242588 ####[facility] [address] [place] [address] Medical Director: Gio Ibrahim MD RBC Auto #/vol (Bld) 5.02 x10 Normal 4.70-6.10 [facility] Comment on above: Result Comment: Note : RBC morphology is normal unless otherwise stated. Evaluation performed only if differential is requested. Performed By: #### 1 55082, 401112, 737728, 242546, 2584481, 275453 ####[facility] [address] [place] [address] Medical Director: Gio Ibrahim MD WBC Auto #/vol (Bld) 11.7 10*3/uL Normal So [facility] Comment on above: Performed By: #### 1 03279, 222012, 696090, 109161, 5532033, [id number] ####[facility] [id number] [place] [address] Medical Director: Gio Ibrahim MD WBC Auto #/vol (Bld) 11.7 x10 High 4.5-11.0 [facility] Comment on above: Performed By: #### 1 [id number], [id number], [id number] ####[facility] [address] [place] [address] Medical Director: Gio Ibrahim MD History and Physicalon 10-05 -2018 History and Physical Patient: GAGE BOWSER Age: 38 years Sex: Male : 1980 Associated Diagnoses: None Author: ILIANA CORREA [facility] Primary care physician: Dr. Matute Complaint: dental pain and I almost passed outHPI: is a 38 year old gentleman who presents with the above complaints. He reports throbbing pain in his right upper jaw which started 2 days ago. It is rated 8/10. It is worse with palpation and when he chews. The day prior to presentation, he developed swelling and redness on the right side the face. He denies any fevers, chills or night sweats. Earlier today, he was walking to his car when he felt weak and fell to his knees. He denies any loss of consciousness. He presented to [facility] emergency room for evaluation. WBC was 11.7. CT showed developing abscess at the right upper 2nd molar with surrounding soft tissue stranding and swelling along the inner and outer margin of the maxilla. He is being admitted for further management.PMHx:- Dental carries PSHx:- dental extractionSHx: no tobacco use. Social EtOH use.FHx: mother is immunocompromised. Father has HLP.Allergies (1) Active ReactionNo Known Allergies None DocumentedReview of Systems: General: no fever, chills or night sweats, weight stable.Skin: no rashes or lesions.Head: no headaches.Ears: no hearing loss or tinnitusEyes: no blurry visionNose: no discharge.Throat: no dry mouth.Neck: no pain or swellingRespiratory: no cough or sputum production. No shortness of breathCardiovascular: no chest pain, no leg swellingGI: no nausea, vomiting or diarrheaGU: No frequency or urgency.Vascular: no calf pain with walking.Musculoskeletal: no joint pain or muscle painHematologic: no easy bleeding or bruisingEndocrine: no heat or cold intoleranceNeuro: dizzinessPhysical Exam:Vital Signs (last 24 hrs) Last Charted Temp Oral 37 degC (AUG 09 11:30)Heart Rate Peripheral 91 bpm (AUG 09:)Resp Rate 17 br/min (AUG 09:)SBP H 147mmHg (AUG 09:)DBP H 94mmHg (AUG 09:)General: alert, no acute distress, lying in bed.HENT: pupils equal round and reactive to light. Extraocular movements are intact. There is swelling of the right jaw with slight erythema.Neck: supple, non-tender, no carotid bruit.Heart: regular rate and rhythm. No murmurs, rubs or gallops, normal S1 & S2.Lungs: clear to asucultation bilaterally, no wheezing or rhonchi.Abdomen: soft, nontender, normal bowel sounds.Extremities: no cyanosis clubbing or edema.Neuro: alert, oriented to time, person and place. No focal neurologic deficits.Pscyh: appropriate mood and affect. Thought process is linear. Speech is not pressured.Skin: no rashes or lesions.Labs (Last four charted values)WBC H 11.7 (AUG 09) Hgb 15.6 (AUG 09) Hct 44.3 (AUG 09) Plt 316 (AUG 09) Na 139 (AUG 09) K 4.2 (AUG 09) CO2 26.8 (AUG 09) Cl 104 (AUG 09) Cr 0.8 (AUG 09) BUN L 7 (AUG 09) Glucose Random 79 (AUG 09) Ca 9.0 (AUG 09) INR .9 (AUG 09) Troponin <0.015 (AUG 09) XR CHEST 2V PA LAT 08/09/2018 12:23 PM EDT: No acute cardiopulmonary process.CT FACIAL AREA W CONTRAST: Suspect developing abscess at the right upper 2nd molar with surrounding soft tissue stranding and swelling along the inner and outer margin of the maxilla. Swelling and stranding also noted within the right subcutaneous soft tissues. No abscess. No subcutaneous gas. Sinus disease. Assessment and Plan:Dental abscess and facial cellultiis: CT showed possible abscess of the right upper 2nd molar with surrounding soft tissue stranding and swelling along the inner and outer margin of the maxilla. There is no drainable abscess. Slight facial cellulitis.- Admit for observation.- IV unasyn.- Pain control.- Will need outpatient dental follow up.Elevated white blood cell count unspecified: likely due to dental abscess and cellulitis. No other SIRS criteria.- Monitor. DVT Prophylaxis: sc enoxaparin. Code status: Full. ent to for review: ADALGISA BUITRAGO DO Normal [facility] Nursing Clinical Noteon Cholesterol mass conc Pt, Marbin guamanug ht to floor via stretcher from ER. Pt has severe pain in right side of mouth with swelling to right cheek. Facial CT done and pain medications ordered/administered. Advised Marbin to use call mccullough if symptoms change or if needs assistance, said ok. Normal [facility] PT INRon 08-09-2018 INR Coag RelTime (PPP) 0.9 {INR} Normal [facility] Comment on above: Result Comment: Norm al reference range for INR on patients not on anticoagulant therapy: 0.9-1.1. General therapeutic range for patients on anticoagulant therapy: 2.0-3.5. Performed By: #### 1 [id number], [id number], [id number] ####[facility] [address] [place] [address] Medical Director: Gio Ibrahim MD Protein mass conc 9.8 seconds Normal 9.8-12.7 [facility] Comment on above: Performed By: #### 1 [id number], [id number] ####[facility] [address] [place] [address] Medical Director: Gio Ibrahim MD TROPONINon 08-09-2018 Troponin I.cardiac mass conc ng/mL Normal 0.000-0.[address] [facility] Comment on above: Order Comment: First Troponin will be drawn STAT, Report abnormal results to Attending Result Comment: This test is a quantitative determination of cardiac troponin I. High levels of serum biotin may interfere with this test. Performed By: #### 1 [id number] ####[facility] [address] [place] [address] Medical Director: Gio Ibrahim MD Troponin I.cardiac mass conc ng/mL Normal 0.000-0.[address] [facility] Comment on above: Result Comment: This test is a quantitative determination of cardiac troponin I. High levels of serum biotin may interfere with this test. Performed By: #### 1 44989, [id number], [id number] ####[facility] [address] [place] [id number] Medical Director: Gio Ibrahim MD XR CHEST 2V PA LATon 018 Protein mass conc EXAM: XR CHEST 2V PA LAT 08/09/2018 12:23 PM EDTHISTORY: CHEST PAINCOMPARISON: None.FINDINGS: Frontal and lateral projections were obtained. The heart isnormal in size. The trachea is in midline. There is no mediastinalwidening. Tonya are unremarkable. No focal infiltrates, pleuraleffusions, or pneumothoraces are seen. There is no bony destruction.SUMMARY: No acute cardiopulmonary process.Technologist: HRD,CMBDictated By: GIOVANY CORREA, Betsyed By: GIOVANY CORREA, Mere Out: 08/09/18 12:46:[address] [facility] ED Physician Reporton 2017 ED Physician Report Patient: JENNIFER BOWSER Age: 38 years Sex: Male : 1980 Associated Diagnoses: Pain, dental; Odontalgia Author: MARVIN LILLY MD Basic Information Time seen: Date & time 02/03/2018 20:20:00. History source: Patient. Arrival mode: Private vehicle. History limitation: None. History of Present Illness The patient presents with dental pain and This patient states that he had dental work 2-1/2 weeks ago, he had 4 teeth that were filled for dental caries, namely #1, 2, 3, 4. He had some other dental caries on the LEFT, but they were to be drilled 3 weeks after the prior procedure which was 2-1/2 weeks ago. He has had ongoing dental pain on and off since then, but for the past 24 hours the pain is becoming excruciating. It is on the RIGHT side upper wisdom molar and premolars.Is no associated fever or chills, no associated swelling. No stiff neck, patient does not feel toxic. He strictly here for pain control. He called Dr. Smith and spoke to her earlier today, she told him that he needs to come in for repeat dental x-rays and needs to set up an appointment for tomorrow morning. He plans to call 1st thing in the morning. He took 3 Advil at 2 PM, but it is not controlling his pain. He has no difficulty swallowing. 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 He has no other significant past medical history.. Review of Systems Constitutional symptoms: No fever, no chills. Skin symptoms: Negative except as documented in HPI. Eye symptoms: Negative except as documented in HPI. ENMT symptoms: Mouth: Dental pain. Respiratory symptoms: No shortness of breath, Cardiovascular symptoms: No chest pain, Gastrointestinal symptoms: Negative except as documented in HPI. Genitourinary symptoms: Negative except as documented in HPI. Musculoskeletal symptoms: Negative except as documented in HPI. Psychiatric symptoms: Negative except as documented in HPI. Endocrine symptoms: Negative except as documented in HPI. Hematologic/Lymphatic symptoms: Negative except as documented in HPI. Allergy/immunologic symptoms: Negative except as documented in HPI. Neurologic symptoms Negative except as documented in HPI. Additional review of systems information: All other systems reviewed and otherwise negative. Health Status Allergies: Allergic Reactions (Selected)No Known Allergies. Medications: None. Immunizations: Per nurse's notes. Past Medical/ Family/ Social History Medical history: Negative. Surgical history: Negative. Family history: Not significant. Social history: Alcohol use: Denies, Tobacco use: Denies, Drug use: Denies, Occupation: Employed, Family/social situation: . Problem list: No qualifying data available. Physical Examination Vital Signs Vital Signs 02/03/2018 20:13 EDT Systolic Blood Pressure 140 mmHg NORMAL Diastolic Blood Pressure 84 mmHg NORMAL Temperature Oral 36.3 degC NORMAL Respiratory Rate 18 br/min NORMAL SpO2 100 % NORMAL Oxygen Therapy Room air Peripheral Pulse Rate 82 bpm NORMAL Height/Length Dosing 190 cm Weight Dosing 91 kg Body Mass Index Dosing 25 . SpO2 02/03/2018 20:13 EDT SpO2 100 % NORMAL . General: Alert, no acute distress, well appearing. Skin: Warm, dry. Head: Normocephalic, atraumatic. Neck: Supple, no cervical lymphadenopathy. Eye: Pupils are equal, round and reactive to light, extraocular movements are intact. Ears, nose, mouth and throat: Oral mucosa moist, no pharyngeal erythema or exudate, Handles secretions well, no mary-tonsillar bulge, no exudate, uvula midline, no stridor, no hoarseness, Tooth: , No pain on percussion of these teeth. No obvious dental caries observed. No associated soft tissue swelling or periodontal swelling or abscesses or fluctuance. No trismus. Able to handle his secretions swallowing is normal.. Cardiovascular: Regular rate and rhythm, No murmur. Respiratory: Lungs are clear to auscultation. Musculoskeletal: Normal ROM. Lymphatics: No lymphadenopathy. Psychiatric: Cooperative, appropriate mood & affect. Neurological Alert and oriented to person, place, time, and situation, No focal neurological deficit observed. 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 Disposition: ED Discharge to Home was placed.(02/03/2018 20:45:00 EDT, Constant Order). Prescriptions: Launch prescriptions Pharmacy:Percocet 5/325 ([id number]) oral tablet (Prescribe): See Instructions, 1 tabs ORAL Q4H - 6HOURS, PRN: for pain, 4 tabs, 0 Refill(s). Patient was given the following educational materials: Dental Pain, Dental Pain. Follow up with: DOCTOR no PCP Within 3 to 5 days; Dr. Smith DDS tomorrow as will be scheduled for close follow up. Return to the ED if worsens in any way Within Call for Appointment. Counseled: Patient, Regarding diagnosis, Regarding diagnostic results, Regarding treatment plan, Regarding prescription, Patient indicated understanding of instructions. Normal [facility] Comment on above: Order Comment: Jacklyn pérez Attachment [id number] can be viewed in source system Result Comment: Mateus PIKE MD 02/03/2018 20:56 ED Progress Noteon 8 Protein mass conc 2014- Pt arrived to ED with c/o right sided dental pain x 2 weeks. VSS. 2049- ok to d/c home. Pt sent with script. Normal [facility] Vital Signs Date Time Vital Sign Value Performing Clinician Peter ortiz 02-13-2025 23:05-0400 Body temperature 97.8 [degF] Devin Petruzzi PA-C Work Phone: [facility] 02-13-2025 23:05-0400 Diastolic blood pressure 90 mm[Hg] Devin Petruzzi PA-C Work Phone: [facility] 02-13-2025 23:05-0400 Heart rate 77 /min Devin Petruzzi PA-C Work Phone: [facility] 02-13-2025 23:05-0400 Respiratory rate 18 /min Devin Petruzzi PA-C Work Phone: [facility] 02-13-2025 23:05-0400 SaO2% (BldA) [Mass fraction] 99 % Devin Petruzzi PA-C Work Phone: [facility] 02-13-2025 23:05-0400 Systolic blood pressure 132 mm[Hg] Devin Petruzzi PA-C Work Phone: [facility] 02-13-2025 19:49-0400 Body height 187.96 cm Devin Petruzzi PA-C Work Phone: [facility] 02-13-2025 19:49-0400 Body mass index (BMI) [Ratio] 25.1 kg/m2 Devin Petruzzi PA-C Work Phone: [facility] 02-13-2025 19:49-0400 Body weight 88.76 kg Devin Petruzzi PA-C Work Phone: [facility] 12-06-2024 13:42-0500 Body mass index (BMI) [Ratio] 24.7 kg/m2 Devin Petruzzi PA-C Work Phone: [facility] 12-06-2024 13:42-0500 Body temperature 98 [degF] Devin Petruzzi PA-C Work Phone: [facility] 12-06-2024 13:42-0500 Body weight 87.6 kg Devin Zacariasi PA-C Work Phone: [facility] 12-06-2024 13:42-0500 Diastolic blood pressure 83 mm[Hg] Devin Zacariasi PA-C Work Phone: [facility] 12-06-2024 13:42-0500 Heart rate 90 /min Devin Zacariasi PA-C Work Phone: [facility] 12-06-2024 13:42-0500 Respiratory rate 18 /min Devin Zacariasi PA-C Work Phone: [facility] 12-06-2024 13:42-0500 SaO2% (BldA) [Mass fraction] 97 % Devin Zacariasi PA-C Work Phone: [facility] 12-06-2024 13:42-0500 Systolic blood pressure 97 mm[Hg] Devin Zacariasi PA-C Work Phone: [facility] Encounters Encounter Date Encounter Type Care Provider Facility Start: 02-13-2025 End: 02-13-2025 Emergency department patient visit Devin Gilmarkolby PA-C Work Phone: -Emergency Department Work Phone: Start: 12-06-2024 End: 12-06-2024 Emergency department patient visit Dr. Alo Patiño DO -Emergency Department Work Phone: Start: 08-09-2018 End: 08-10-2018 Patient encounter Shana MARVIN BUITRAGO Facility:[id number] Start: 02-03-2018 End: 02-03-2018 Emergency department patient visit MARVIN LILLY Facility:[id number] Procedures Date Procedure Procedure Detail Performing Clinician Start: 02-13-2025 Computed tomography of abdomen and pelvis with contrast Devin Bruce PA-C Work Phone: Start: 12-06-2024 X-ray of chest, PA a nd lateral views Devin Zacariasi PA-C Work Phone: Start: 12-06-2024 SARS-CoV-2, Influenz a & RSV (PCR) Devin Bruce PA-C Work Phone: Plan of Treatment Date Care Activity Detail Author Start: 02-13-2025 [facility] Start: 12-06-2024 [facility] Start: 12-06-2024 Respiratory secretio n precautions [facility] Patient Education [facility] Work Phone: Patient referral [facility] Work Phone: Payers Date Payer Category Payer Self-pay 2024 Unknown [id number] 2008 Unknown 1980 Unknown [id number] Unknown [id number] Unknown [id number] Social History Date Type Detail Facility Start: 02-13-2025 Tobacco smoking stat [facility] Never smoked tobacco (finding) [facility] Start: 02-13-2025 Sex Male (finding) [facility] Start: 1980 Sex Assigned At Male [facility] Mental Status Date Assessment Result Facility 12-06-2024 Cognitive function Level Of Cons ciousness Awake;Alert;Appropriate [facility] Work Phone: Radiology Diagnostic study note 02-13-2025 Note Date & Type Note Facility 02-13-2025 Radiology Diagnostic study note [facility] Imaging Services [address] [place] [address] Abdomen/Pelvis WITH Contrast MR#: [id number] Acct: [id number] Name: MARBIN BOWSER Rep #: [id number] : 1980 M 45 From: Latonia Escobedo MD PCP: Devin Bruce PA-C Status: REG ER Study:Abdomen/Pelvis WITH Contrast Date of Ex am: 02/13/25 Exam# [id number] Ordering Dr: Willa Luis DO PROCEDURE: ABDOMEN/PELVIS WITH CONTRAST 02/13/2025 REASON FOR EXAM: ABDOMINAL PAIN TECHNIQUE: Abdomen and pelvis CT with intravenous contrast. Coronal and Sagittal reconstruction series were provided. PATIENT PREPARATION: Per protocol ORAL CONTRAST: Administered. CONTRAST: Isovue-370 VOLUME: 100 mL One or more dose reduction techniques were used (e.g., Automated exposure control, adjustment of the mA and/or kV according to patient size, use of iterative reconstruction technique. RADIATION DOSE SUMMARY: CTDlvol: 32 mGy DLP: 900 mGycm COMPARISON: None. FINDINGS: Lung bases: The heart is normal in size. The bibasilar lungs are clear. Liver: The liver is normal in size without focal hepatic mass. The major portalveins are patent. No biliary ductal dilation. Gallbladder: Tiny radiopaque stone within the gallbladder. Spleen: Normal-size. Pancreas: Unremarkable. Adrenals: No adrenal mass. Kidneys: No hydronephrosis or nephrolithiasis. Bladder: Distended and unremarkable. Reproductive Organs: Unremarkable. Bowel: Oral contrast material opacifies the stomach, small and large bowel loops. The bowel loops are normal in caliber. No ascites or pneumoperitoneum. Normal appendix. Lymph nodes: No suspicious lymph node enlargement. Vasculature: The abdominal aorta and IVC are normal. Bones: No aggressive osseous lesions. CT/Abdomen/Pelvis WITH Contrast IMPRESSION: 1. No acute abdominopelvic finding. 2. Cholelithiasis without evidence of acute cholecystitis. Reading Location: [facility] CC: NADIR Bruce; Dr. Daniel Luis DO ~ Associate Director Of Development: Signed [facility] Evaluation note Note Date & Type Note Facility Evaluation note No assessment information availa ble [facility] Work Phone: Reason for referral (narrative) Note Date & Type Note Facility Reason for referral (narrative) No reason for referral information available [facility] Work Phone: Summary Purpose Family History No Family History Records FoundNo Family History Records Found Advance Directives No Advanced Directives Records Found Advance Directive Response Recorded Date/ Time Living Will No December 06 3:45pm Do you have a Healthcare Power of Setter Automatic Spinning Lathe? No December 06, 2024 3:45pm Living Will No February 13, 2025 8:09pm Do you have a Healthcare Power of Setter Automatic Spinning Lathe? No February 13, 2025 8:09pm Chief Complaint and Reason for Visit Chief Complaint Admit Date COLD SX December 06, 2024 1 :41pm ABDOMINAL PAIN February 13, 2025 7:4 9pm Additional Source Comments (unrecognized sect ion and content) No Status Records FoundNo Status Records Found INFORMATION SOURCE (unrecogn ized section and content) DATE CREATED AUTHOR 09/06/[address] [facility] DATE CREATED AUTHOR AUTHORCarter EMANUEL 02/20/2025 [facility] Teams (unrecognized sec tion and content) Team Status: Active Member Role Status Dates Devin FRAZIER PA-C Primary Care Provider Active Team Status: Inactive Member Role Status Dates Devin FRAZIER PA-C Primary Care Provider Active Start: December 06, 2024 End: December 06, 2024 Dr. Alo Patiño DO Attending Provider Active Start: December 06, 2024 End: December 06, 2024 Dr. Alo Patiño DO Emergency Provider Active Start: December 06, 2024 End: December 06, 2024 Team Status: Inactive Member Role Status Dates Devin FRAZIER PA-C Primary Care Provider Active Start: February 13, 2025 End: February 13, 2025 Dr. Daniel Luis DO Emergency Provider Active S tart: February 13, 2025 End: February 13, 2025 Goals (unrecognized section and content) Goals may be documented in a n alternate section FOR RECORDS PERTAINING TO PATIENTS WHO ARE OR HAVE BEEN ENROLLED IN A CHEMICAL DEPENDENCY/SUBSTANCEABUSE PROGRAM, SOME INFORMATION MAY BE OMITTED. This clinical summary was aggregated from multiple sources. Caution should be exercised in using it in the provision of clinical care. This summary normalizes information from multiple sources, and as a consequence, information in this document may materially change the coding, format and clinical context of patient data. In addition, data may be omitted in some cases. CLINICAL DECISIONS SHOULD BE BASED ON THE PRIMARY CLINICAL RECORDS. [facility], [facility]. provides no warranty or guarantee of the accuracy or completeness of information in this document.
== END 2025-05-17 17:02 | disposition home or self-care (01) ==
LOC: ED 16:58
PROVIDERS: Emergency Provider Emergency Medicine; PCP Physician Assistant; Visit Provider Emergency Medicine
DX: H61.22 Impacted cerumen, left ear (principal); K02.9 Dental caries, unspecified
CPT/HCPCS: 69210; 99282